=== PATIENT | male | born 1960 | race Two or more races ===

== ENCOUNTER 2020-09-07 13:18 | Emergency (ER) | payer OTHER, SELFPAY ==
[2020-09-07 13:39] VITALS: BP 153/85; PULSE 65; RESP 16; TEMP 36.6; O2SAT 98; BMI 25.2
--- NOTE | 2020-09-07 13:40 | ED.CHESTPAIN ---
HPI - Chest Pain General Chief Complaint: Chest Pain <Praveen Means MD - Last Filed: 09/07/20 15:53> Stated Complaint: CHEST PAIN <Praveen Means MD - Last Filed: 09/07/20 15:53> Time Seen by Provider: 09/07/20 13:40 <Praveen Means MD - Last Filed: 09/07/20 15:53> History of Present Illness HPI narrative: Patient complains of several months of intermittent coming and going chest pain Most recent episode started last night approximately 18 hours ago and has been continuous, the pain is worse with a deep breath, there is some associated anxiety, it is not related to exertion there is no sweating no nausea no vomiting no palpitations no shortness of breath no difficulty breathing no calf pain no leg swelling no fever no chills no cough <BRENDEN Leong - Last Filed: 09/07/20 21:41> Related Data Home Medications: Previous Rx's Medication Instructions Recorded lorazepam [Ativan] 0.5 mg PO TID PRN #14 tab 09/07/20 <Praveen Means MD - Last Filed: 09/07/20 15:53> Allergies/Adverse Reactions: Allergies Allergy/AdvReac Type Severity Reaction Status Date / Time cholecalciferol (vitamin D3) Allergy Unknown RASH Unverified 07/02/20 19:20 [From VITAMIN D3] <Praveen Means MD - Last Filed: 09/07/20 15:53> Review of Systems Review of Systems: Patient has no fever no chills no weakness no numbness no nausea no vomiting no exertional symptoms no sweating no radiation of his pain no palpitations no feeling faint no fainting no abdominal pain no nausea no vomiting no diarrhea, no skin rash <BRENDEN Leong - Last Filed: 09/07/20 21:41> Yes all other systems are reviewed and are negative <BRENDEN Leong Last Filed: 09/07/20 21:41> COUNTS INCLUDE 234 BEDS AT THE [facility] Past Medical History Attestation statement: The following information was validated with the patient. <BRENDEN Leong Last Filed: 09/07/20 21:41> COUNTS INCLUDE 234 BEDS AT THE [facility] Narrative: Patient has no significant medical history, does not smoke does not do drugs does not do alcohol <BRENDEN Leong - Last Filed: 09/07/20 21:41> Medical History: Medical History (Updated 09/07/20 @ 16:04 by BRENDEN Leong) No known health problems <Praveen Means MD - Last Filed: 09/07/20 15:53> Social History Social History: Social History Smoked in Last 30 Days: No Use of substances other than those prescribed or required for medical reasons: No Advance Directives: No Advance Directives Information Provided: No <Praveen Means MD - Last Filed: 09/07/20 15:53> Physical Exam Vital Signs: Vital Signs: Last Vital Signs Temp 98 F 09/07/20 13:39 Pulse 66 09/07/20 14:41 Resp 12 09/07/20 14:41 BP 141/84 H 09/07/20 14:41 Pulse Ox 98 09/07/20 13:39 Body Mass Index 25.2 <Praveen Means MD - Last Filed: 09/07/20 15:53> Vital Signs: Last Vital Signs Temp 98 F 09/07/20 13:39 Pulse 66 09/07/20 14:41 Resp 12 09/07/20 14:41 BP 141/84 H 09/07/20 14:41 Pulse Ox 98 09/07/20 13:39 Body Mass Index 25.2 <BRENDEN Leong - Last Filed: 09/07/20 21:41> Patient is A&O x3, comfortable cheerful cooperative no acute distress The mucous membranes are moist the neck is supple The chest wall is nontender, there is no pain with movement of his arms, the lung sounds are full clear symmetrical and equal no adventitious sounds The heart no murmurs rate and rhythm regular Abdomen soft nontender Extremities no edema no calf tenderness or swelling Neuro no focal deficit Skin no rashes <BRENDEN Leong - Last Filed: 09/07/20 21:41> Course Course Course Narrative: I have discussed the case and management with the SHER <Praveen Means MD - Last Filed: 09/07/20 15:53> MDM - Chest Pain MDM Narrative Medical decision making narrative: Patient with continuous chest pain associated with anxiety for over 18 hours had negative troponin, no evidence of ischemic change on EKG, no shortness of breath Discussion with patient who can follow with his primary care doctor for further evaluation and trial of Ativan to see if his symptoms which she associates with anxiety are relieved with Ativan <BRENDEN Leong - Last Filed: 09/07/20 21:41> Lab Data Attestation: I reviewed the patient's lab results. <BRENDEN Leong - Last Filed: 09/07/20 21:41> Result diagrams: : 09/07/20 14:50 09/07/20 14:50 <Praveen Means MD - Last Filed: 09/07/20 15:53> Labs: Lab Results 09/07/20 09/07/20 09/07/20 Range/Units 14:50 14:50 14:50 WBC 6.0 (4.8-10.8) X10*3/uL RBC 4.36 L (4.60-5.80) X10*6/uL Hgb 14.2 (14.0-18.0) g/dl Hct 42.0 (42-52) % MCV 96.3 (80-98) fL MCH 32.6 (27.0-33.0) pg MCHC 33.8 (31.0-36.0) g/dl RDW 11.8 (11.0-16.0) % Plt Count 208 (160-400) X10*3/uL MPV 10.1 (9.4-12.4) fL Immature Gran % (Auto) 0.2 (0.0-0.4) % Neut % (Auto) 68.5 (45-73) % Lymph % (Auto) 21.3 (20-40) % Lamar % (Auto) 9.6 (2-11) % Eos % (Auto) 0.2 (0-4) % Baso % (Auto) 0.2 (0-2) % Lymph # (Auto) 1.3 (1.2-4.9) X10*3/uL Lamar # (Auto) 0.6 (0.1-1.2) X10*3/uL Eos # (Auto) 0.0 (0.0-0.4) X10*3/uL Baso # (Auto) 0.0 (0.0-0.2) X10*3/uL Abs Immat Gran (auto) 0.01 (0.00-0.03) X10*3/uL Absolute Neuts (auto) 4.1 (2.0-8.3) X10*3/uL Absolute Nucleated RBC 0.000 (0.0-0.012) X10*3/uL Nucleated RBC % (auto) 0.0 (0.0-0.2) /100WBC Hold Blue Top SEE NOTE Sodium 137 (135-145) mmol/L Potassium 5.0 (3.3-5.1) mmol/l Chloride 103 (96-108) mmol/L Carbon Dioxide 27 (22-29) mmol/L Anion Gap 12 (12-20) BUN 11 (9-16) mg/dL Creatinine 0.99 (0.5-1.4) mg/dL Estim Creat Clear Calc 78.6 Estimated GFR > 60 Random Glucose 107 (60-115) mg/dL Calcium 9.5 (8.4-10.2) mg/dL Troponin I High Sens (<3.5-35.0) ng/L 09/07/20 Range/Units 14:50 WBC (4.8-10.8) X10*3/uL RBC (4.60-5.80) X10*6/uL Hgb (14.0-18.0) g/dl Hct (42-52) % MCV (80-98) fL MCH (27.0-33.0) pg MCHC (31.0-36.0) g/dl RDW (11.0-16.0) % Plt Count (160-400) X10*3/uL MPV (9.4-12.4) fL Immature Gran % (Auto) (0.0-0.4) % Neut % (Auto) (45-73) % Lymph % (Auto) (20-40) % Lamar % (Auto) (2-11) % Eos % (Auto) (0-4) % Baso % (Auto) (0-2) % Lymph # (Auto) (1.2-4.9) X10*3/uL Lamar # (Auto) (0.1-1.2) X10*3/uL Eos # (Auto) (0.0-0.4) X10*3/uL Baso # (Auto) (0.0-0.2) X10*3/uL Abs Immat Gran (auto) (0.00-0.03) X10*3/uL Absolute Neuts (auto) (2.0-8.3) X10*3/uL Absolute Nucleated RBC (0.0-0.012) X10*3/uL Nucleated RBC % (auto) (0.0-0.2) /100WBC Hold Blue Top Sodium (135-145) mmol/L Potassium (3.3-5.1) mmol/l Chloride (96-108) mmol/L Carbon Dioxide (22-29) mmol/L Anion Gap (12-20) BUN (9-16) mg/dL Creatinine (0.5-1.4) mg/dL Estim Creat Clear Calc Estimated GFR Random Glucose (60-115) mg/dL Calcium (8.4-10.2) mg/dL Troponin I High Sens < 3.5 (<3.5-35.0) ng/L <Praveen Means MD - Last Filed: 09/07/20 15:53> Lab Results 09/07/20 09/07/20 09/07/20 Range/Units 14:50 14:50 14:50 WBC 6.0 (4.8-10.8) X10*3/uL RBC 4.36 L (4.60-5.80) X10*6/uL Hgb 14.2 (14.0-18.0) g/dl Hct 42.0 (42-52) % MCV 96.3 (80-98) fL MCH 32.6 (27.0-33.0) pg MCHC 33.8 (31.0-36.0) g/dl RDW 11.8 (11.0-16.0) % Plt Count 208 (160-400) X10*3/uL MPV 10.1 (9.4-12.4) fL Immature Gran % (Auto) 0.2 (0.0-0.4) % Neut % (Auto) 68.5 (45-73) % Lymph % (Auto) 21.3 (20-40) % Lamar % (Auto) 9.6 (2-11) % Eos % (Auto) 0.2 (0-4) % Baso % (Auto) 0.2 (0-2) % Lymph # (Auto) 1.3 (1.2-4.9) X10*3/uL Lamar # (Auto) 0.6 (0.1-1.2) X10*3/uL Eos # (Auto) 0.0 (0.0-0.4) X10*3/uL Baso # (Auto) 0.0 (0.0-0.2) X10*3/uL Abs Immat Gran (auto) 0.01 (0.00-0.03) X10*3/uL Absolute Neuts (auto) 4.1 (2.0-8.3) X10*3/uL Absolute Nucleated RBC 0.000 (0.0-0.012) X10*3/uL Nucleated RBC % (auto) 0.0 (0.0-0.2) /100WBC Hold Blue Top SEE NOTE Sodium 137 (135-145) mmol/L Potassium 5.0 (3.3-5.1) mmol/l Chloride 103 (96-108) mmol/L Carbon Dioxide 27 (22-29) mmol/L Anion Gap 12 (12-20) BUN 11 (9-16) mg/dL Creatinine 0.99 (0.5-1.4) mg/dL Estim Creat Clear Calc 78.6 Estimated GFR > 60 Random Glucose 107 (60-115) mg/dL Calcium 9.5 (8.4-10.2) mg/dL Troponin I High Sens (<3.5-35.0) ng/L 09/07/ Range/Units 14:50 WBC (4.8-10.8) X10*3/uL RBC (4.60-5.80) X10*6/uL Hgb (14.0-18.0) g/dl Hct (42-52) % MCV (80-98) fL MCH (27.0-33.0) pg MCHC (31.0-36.0) g/dl RDW (11.0-16.0) % Plt Count (160-400) X10*3/uL MPV (9.4-12.4) fL Immature Gran % (Auto) (0.0-0.4) % Neut % (Auto) (45-73) % Lymph % (Auto) (20-40) % Lamar % (Auto) (2-11) % Eos % (Auto) (0-4) % Baso % (Auto) (0-2) % Lymph # (Auto) (1.2-4.9) X10*3/uL Lamar # (Auto) (0.1-1.2) X10*3/uL Eos # (Auto) (0.0-0.4) X10*3/uL Baso # (Auto) (0.0-0.2) X10*3/uL Abs Immat Gran (auto) (0.00-0.03) X10*3/uL Absolute Neuts (auto) (2.0-8.3) X10*3/uL Absolute Nucleated RBC (0.0-0.012) X10*3/uL Nucleated RBC % (auto) (0.0-0.2) /100WBC Hold Blue Top Sodium (135-145) mmol/L Potassium (3.3-5.1) mmol/l Chloride (96-108) mmol/L Carbon Dioxide (22-29) mmol/L Anion Gap (12-20) BUN (9-16) mg/dL Creatinine (0.5-1.4) mg/dL Estim Creat Clear Calc Estimated GFR Random Glucose (60-115) mg/dL Calcium (8.4-10.2) mg/dL Troponin I High Sens < 3.5 (<3.5-35.0) ng/L <BRENDEN Leong - Last Filed: 09/07/20 21:41> Discharge Plan Discharge Clinical Impression: Chest pain Qualifiers: Chest pain type: unspecified Qualified Code(s): R07.9 - Chest pain, unspecified <Praveen Means MD - Last Filed: 09/07/20 15:53> Patient Disposition: Home, Self-Care <Praveen Means MD - Last Filed: 09/07/20 15:53> Additional Instructions: Our workup today did not show any immediately dangerous condition EKG and tests for heart attack were normal Vital signs were normal The symptoms may be related to anxiety so we are going to let you try and anxiety medicine to see if they help Most important is follow with primary care doctor as all we did today's rule out acute heart attack but for further evaluation of her heart you may need referral to brick maker and other testing Return to ER any time for difficulty breathing, worsening chest pain any worse condition or any concerns <Praveen Means MD - Last Filed: 09/07/20 15:53> Prescriptions: New lorazepam [Ativan] 0.5 mg tablet 0.5 mg PO TID PRN (Reason: anxiety) Qty: 14 RF: 0 <Praveen Means MD - Last Filed: 09/07/20 15:53> Interventions: ED Discharge Assessment Last Done: 09/07/20 16:12 <Praveen Means MD - Last Filed: 09/07/20 15:53> Discharge Date/Time: 09/07/20 16:22 <Praveen Means MD - Last Filed: 09/07/20 15:53>
--- NOTE | 2020-09-07 14:00 | XR_ITS ---
EXAMINATION: XR CHEST CLINICAL INFORMATION: Chest pain COMPARISON: Previous chest x-ray most recent December 2019 TECHNIQUE: Frontal view of the chest was obtained. FINDINGS: The cardiac and mediastinal contours are normal. The lungs are clear. There is no pleural effusion or pneumothorax. There are degenerative changes of the spine. XR/XR chest 1V IMPRESSION: Unremarkable examination.
--- NOTE | 2020-09-07 14:00 | ECG_ITS ---
Test Reason : BACK PAIN Blood Pressure : / mmHG Vent. Rate : 064 BPM Atrial Rate : 064 BPM P-R Int : 158 ms QRS Dur : 086 ms QT Int : 362 ms P-R-T Axes : 060 004 021 degrees QTc Int : 373 ms Normal sinus rhythm Minimal criteria for Left ventricular hypertrophy Borderline criteria for When compared with ECG of 18-DEC-2019 11:59, No significant change was found Referred By: Eloy Prater Electronically Signed By:DIPIKA OCASIO MD
[2020-09-07 14:41] VITALS: BP 141/84; PULSE 66; RESP 12
[2020-09-07 14:57] LABS: Basophils Percent Auto 0.2 % (0-2); Eosinophils Percent Auto 0.2 % (0-4); Hemoglobin 14.2 g/dl (14.0-18.0); Imm Gran Abs Auto 0.01 X10*3/uL (0.00-0.03); Imm Gran Pct Auto 0.2 % (0.0-0.4); Lymphocytes Absolute Auto 1.3 X10*3/uL (1.2-4.9); Lymphocytes Percent Auto 21.3 % (20-40); MANUAL DIFF FLAG NO; Mean Corpuscular HGB Conc 33.8 g/dl (31.0-36.0); Mean Corpuscular Hemoglobin 32.6 pg (27.0-33.0); Mean Corpuscular Volume 96.3 fL (80-98); Mean Platelet Volume 10.1 fL (9.4-12.4); Monocytes Absolute Auto 0.6 X10*3/uL (0.1-1.2); Monocytes Percent Auto 9.6 % (2-11); Neutrophils Absolute Auto 4.1 X10*3/uL (2.0-8.3); Neutrophils Percent Auto 68.5 % (45-73); Platelet Count 208 X10*3/uL (160-400); Red Blood Count 4.36 X10*6/uL (4.60-5.80); Red Cell Distribution Width 11.8 % (11.0-16.0)
[2020-09-07 15:20] LABS: Anion Gap 12 (12-20); Blood Urea Nitrogen 11 mg/dL (9-16); Calcium 9.5 mg/dL (8.4-10.2); Carbon Dioxide 27 mmol/L (22-29); Chloride 103 mmol/L (96-108); Creatinine Clr Calc Pharmacy 78.6; Estimated Glomerular Filt Rate > 60; Glucose Random 107 mg/dL (60-115); Sodium 137 mmol/L (135-145)
[2020-09-07 15:26] LABS: Troponin-I High Sensitivity < 3.5 ng/L (<3.5-35.0)
== END 2020-09-07 16:22 | disposition home or self-care (01) ==
PROVIDERS: Physician Assistant Medical; Emergency Provider Emergency Medicine
DX: R07.9 Chest pain, unspecified (principal); Z79.899 Other long term (current) drug therapy
CPT/HCPCS: 36415; 71045; 80048; 84484; 85025; 93005; 99283; 99284

== ENCOUNTER 2020-12-30 13:48 | Emergency (ER) | payer OTHER, SELFPAY ==
--- NOTE | ~2020-12-30 | CT_ITS ---
EXAMINATION: CT ANGIOGRAM OF THE CHEST WITH AND WITHOUT CONTRAST (CT PULMONARY ANGIOGRAM FOR PE) CLINICAL INFORMATION: Reason for Exam chest and back pain. Dissection COMPARISON: Chest radiograph earlier today and lumbar spine MR 07/03/2018 TECHNIQUE: Multidetector volumetric CT imaging of the chest was obtained after the administration of 70 mL of Omnipaque 350 intravenous contrast without immediate adverse reactions. Axial MIP volume rendering provided. Sagittal and coronal reformatted images were obtained. Images were not evaluated on an independent dedicated 3-D workstation and 3-D images were not. This CT examination was performed using dose optimization techniques as appropriate, variously including the following: *Automated exposure control *Adjustment of mA and/or kV according to patient size (this includes techniques or standardized protocols for targeted exams where dose is matched to indication/reason for exam; i.e. extremities or head) *Use of iterative reconstruction technique DLP: 279 mGy-cm FINDINGS: LUNGS: The lungs are clear with no evidence of inflammation or nodules. MEDIASTINUM: The mediastinum is normal. VASCULAR: The thoracic aorta appears normal. There is no evidence of dissection. Three-vessel branching pattern of the aortic arch is seen with widely patent great vessels. The visualized pulmonary arteries and pulmonary veins are unremarkable. A prominent normal superior intercostal vein is noted. The visualized abdominal aorta appears normal with patent celiac and SMA. 2 renal arteries are noted bilaterally. PLEURA: There is no pleural effusion. No pleural mass or thickening. AXILLA: No lymphadenopathy. UPPER ABDOMEN: A small hiatal hernia is present. OSSEOUS STRUCTURES: A compression fracture of the superior endplate of T12 is again noted. CT/CT angio chest IMPRESSION: Negative study. No evidence of aortic dissection.
--- NOTE | ~2020-12-30 | XR_ITS ---
EXAMINATION: XR CHEST CLINICAL INFORMATION: Chest pain COMPARISON: Chest x-ray 09/07/2020 TECHNIQUE: Frontal portable view of the chest was obtained. 4:36 PM FINDINGS: Lungs are clear. No pulmonary vascular congestion. There is no pleural effusion. The heart size is normal. The cardiac and mediastinal contours are normal. There are multilevel degenerative changes of dorsal spine. XR/XR chest 1V IMPRESSION: Unremarkable examination.
--- NOTE | 2020-12-30 13:52 | ECG_ITS ---
Test Reason : CHEST PAIN Blood Pressure : / mmHG Vent. Rate : 067 BPM Atrial Rate : 067 BPM P-R Int : 164 ms QRS Dur : 080 ms QT Int : 350 ms P-R-T Axes : 064 004 030 degrees QTc Int : 369 ms Normal sinus rhythm Normal ECG When compared with ECG of 07-SEP-2020 13:24, No significant change was found Referred By: Generic ED Physician Electronically Signed By:OLIVERIO ADAMS MD
[2020-12-30 14:12] VITALS: BP 124/73; PULSE 70; RESP 16; TEMP 36.7; O2SAT 97; BMI 28.1
--- NOTE | 2020-12-30 14:29 | PC.NURSE ---
ekg called over head multiple times
[2020-12-30 16:44] VITALS: BP 121/80; PULSE 69; RESP 22; TEMP 36.9; O2SAT 100
--- NOTE | 2020-12-30 17:05 | ED_ITS ---
HPI - Chest Pain General Chief Complaint: Chest Pain Stated Complaint: chest pain Time Seen by Provider: 12/30/20 16:25 Source: patient Mode of arrival: ambulatory Limitations: no limitations History of Present Illness HPI narrative: Patient presents to the ED for chest and back pain that has been occurring since Monday. Patient denies any swelling of lower extremities, calf pain, coughing up blood, fever, chills, any recent trauma to the chest. Patient denies any recent trauma or chest pain on inspiration. Patient states no history of drug use. Patient denies any recent long travel or recent surgery. MD complaint: chest pain Related Data Previous Rx's Medication Instructions Recorded lorazepam [Ativan] 0.5 mg PO TID PRN #14 tab 09/07/20 Allergies Allergy/AdvReac Type Severity Reaction Status Date / Time cholecalciferol (vitamin D3) Allergy Unknown RASH Unverified 07/02/20 19:20 [From VITAMIN D3] Review of Systems Review of Systems: Yes all other systems are reviewed and are negative Constitutional: Constitutional: Reports as per HPI and Reports no additional constitutional complaints Eyes: Eyes: Reports as per HPI and Reports no additional eye complaints ENT: Reports system reviewed and no additional complaints, except as documented and Reports as per HPI Cardiovascular: Cardiovascular: Reports as per HPI, Reports no additional cardiovascular complaints and Reports chest pain Respiratory: Respiratory: Reports as per HPI and Reports no additional respiratory complaints Gastrointestinal: Gastrointestinal: Reports as per HPI and Reports no addit ional gastrointestinal complaints Genitourinary: Genitourinary: Reports no additional male genitourinary complaints and Reports as per HPI Musculoskeletal: Musculoskeletal: Reports no additional musculoskeletal complaints, Reports as per HPI and Reports back pain Neurologic: Reports system reviewed and no additional complaints, except as documented and Reports as per HPI Psychiatric: Psychiatric: Reports no additional psychiatric complaints and Reports as per HPI PMF Past Medical History Medical History (Updated 12/30/20 @ 20:27 by BRENDEN Lema) No known health problems Social History Social History Alcohol intake: never Smoking Status: Never smoker Use of substances other than those prescribed or required for medical reasons: No Advance Directives: No Advance Directives Information Provided: No Physical Exam Vital Signs: Vital Signs: Last Vital Signs Temp 98.4 F 12/30/20 19:03 Pulse 62 12/30/20 19:03 Resp 16 12/30/20 19:03 BP 143/80 H 12/30/20 19:03 Pulse Ox 100 12/30/20 19:03 Body Mass Index 28.1 Const: General: cooperative, healthy appearing, comfortable, no acute distress, well developed, alert and awake; No Physically active Orientation/consciousness: patient oriented x3 HENMT: Head: Yes normal to inspection, Yes No palpable skull fracture present, Yes normocephalic, Yes atraumatic and No abrasion Eyes: General: appearance normal, both eyes and all related structures Neck: Neck: Yes normal visual inspection, Yes full ROM, Yes no lymphadenopathy, Yes no meningeal signs, Yes trachea midline, Yes supple and No tender Chest: Chest palpation & inspection: normal inspection of the chest and normal palpation of entire chest wall Resp: Effort & Inspection: normal respiratory effort and able to speak in complete sentences Auscultation: clear to auscultation bilaterally Cardio: Jugular venous distension: no JVD Heart sounds: S1 normal heart sound present and S2 normal heart sound present GI: Inspection: Yes normal to inspection and No abdominal wall ecchymosis Palpation (GI): Soft to palpation, not firm, nontender, no guarding and not rigid : General: No CVA tenderness and Yes no CVA tenderness Back/Spine/Pelvis: Back: no CVA tenderness, No CVA tenderness and No back te nderness Skin: General skin exam: no rashes or lesions noted and elasticity normal Neuro: General: patient oriented x3, no meningeal signs and CN's II-XI intact bilaterally Cranial nerves: Yes CN's II-XII intact bilaterally Extrem: Other: Lower extremities negative for any swelling, pitting edema, or calf pain General: Yes normal to inspection and Yes full ROM Psych: Appearance: grossly normal, well kempt and not disheveled Course Course Course Narrative: Patient will have labs, EKG. Reevaluation(s) Reevaluation #1: Patient's EKG normal. Troponin and D-dimer negative. Due to patient stating chest and back pain patient had a chest CT to rule out dissection although very unlikely due to patient presently comfortable and blood pressure normal. Wells score 0. D-dimer is negative. Reevaluation #2: Chest CT came back negative for dissection. Patient is safe for discharge per. Patient states no longer having chest pain Time: 20:24 MDM - Chest Pain MDM Narrative Medical decision making narrative: Chest pain Lab Data Result diagrams: 12/30/20 17:08 12/30/20 17:08 Labs: Lab Results 12/30/20 12/30/20 12/30/20 Range/Units 17:08 17:08 17:08 WBC 7.0 (4.8-10.8) X10*3/uL RBC 4.28 L (4.60-5.80) X10*6/uL Hgb 13.7 L (14.0-18.0) g/dl Hct 40.6 L (42-52) % MCV 94.9 (80-98) fL MCH 32.0 (27.0-33.0) pg MCHC 33.7 (31.0-36.0) g/dl RDW 11.9 (11.0-16.0) % Plt Count 187 (160-400) X10*3/uL MPV 10.4 (9.4-12.4) fL Immature Gran % (Auto) 0.1 (0.0-0.4) % Neut % (Auto) 69.9 (45-73) % Lymph % (Auto) 19.0 L (20-40) % Schleicher % (Auto) 9.8 (2-11) % Eos % (Auto) 0.9 (0-4) % Baso % (Auto) 0.3 (0-2) % Lymph # (Auto) 1.3 (1.2-4.9) X10*3/uL Schleicher # (Auto) 0.7 (0.1-1.2) X10*3/uL Eos # (Auto) 0.1 (0.0-0.4) X10*3/uL Baso # (Auto) 0.0 (0.0-0.2) X10*3/uL Abs Immat Gran (auto) 0.01 (0.00-0.03) X10*3/uL Absolute Neuts (auto) 4.9 (2.0-8.3) X10*3/uL Absolute Nucleated RBC 0.000 (0.0-0.012) X10*3/uL Nucleated RBC % (auto) 0.0 (0.0-0.2) /100WBC PT 12.4 (10.8-13.0) SEC INR 1.0 (0.9-1.1) APTT 33.9 (24.1-38.0) SEC D-Dimer < 200 NG/ML Sodium 138 (135-145) mmol/L Potassium 4.4 (3.3-5.1) mmol/L Chloride 104 (96-108) mmol/L Carbon Dioxide 29 (22-29) mmol/L Anion Gap 9 L (12-20) BUN 15 (9-16) mg/dL Creatinine 1.03 (0.5-1.4) mg/dL Estim Creat Clear Calc 82.4 Estimated GFR > 60 Random Glucose 87 (60-115) mg/dL Calcium 9.6 (8.4-10.2) mg/dL Total Bilirubin 0.6 (0.0-1.0) mg/dL AST 21 (5-37) U/L ALT 24 (0-40) U/L Alkaline Phosphatase 77 (39-117) U/L Troponin I High Sens (<3.5-35.0) ng/L B-Natriuretic Peptide (<100) pg/mL Total Protein 7.1 (6.5-8.0) g/dL Albumin 4.3 (3.5-5.0) g/dL 12/30/20 Range/Units 17:08 WBC (4.8-10.8) X10*3/uL RBC (4.60-5.80) X10*6/uL Hgb (14.0-18.0) g/dl Hct (42-52) % MCV (80-98) fL MCH (27.0-33.0) pg MCHC (31.0-36.0) g/dl RDW (11.0-16.0) % Plt Count (160-400) X10*3/uL MPV (9.4-12.4) fL Immature Gran % (Auto) (0.0-0.4) % Neut % (Auto) (45-73) % Lymph % (Auto) (20-40) % Schleicher % (Auto) (2-11) % Eos % (Auto) (0-4) % Baso % (Auto) (0-2) % Lymph # (Auto) (1.2-4.9) X10*3/uL Schleicher # (Auto) (0.1-1.2) X10*3/uL Eos # (Auto) (0.0-0.4) X10*3/uL Baso # (Auto) (0.0-0.2) X10*3/uL Abs Immat Gran (auto) (0.00-0.03) X10*3/uL Absolute Neuts (auto) (2.0-8.3) X10*3/uL Absolute Nucleated RBC (0.0-0.012) X10*3/uL Nucleated RBC % (auto) (0.0-0.2) /100WBC PT (10.8-13.0) SEC INR (0.9-1.1) APTT (24.1-38.0) SEC D-Dimer NG/ML Sodium (135-145) mmol/L Potassium (3.3-5.1) mmol/L Chloride (96-108) mmol/L Carbon Dioxide (22-29) mmol/L Anion Gap (12-20) BUN (9-16) mg/dL Creatinine (0.5-1.4) mg/dL Estim Creat Clear Calc Estimated GFR Random Glucose (60-115) mg/dL Calcium (8.4-10.2) mg/dL Total Bilirubin (0.0-1.0) mg/dL AST (5-37) U/L ALT (0-40) U/L Alkaline Phosphatase (39-117) U/L Troponin I High Sens < 3.5 (<3.5-35.0) ng/L B-Natriuretic Peptide 34 (<100) pg/mL Total Protein (6.5-8.0) g/dL Albumin (3.5-5.0) g/dL ECG Data ECG #1: Interpretation: Normal sinus rhythm. Normal EKG. Ventricular rate 67. IA interval 164. QRS 80. Negative STEMI Discharge Plan Discharge Clinical Impression: Atypical chest pain Patient Disposition: Home, Self-Care Instructions: Chest Pain (ED) Additional Instructions: Return to the ED immediately for worsening chest pain, shortness of breath, swelling of lower extremities, calf pain, coughing up, fever, chills, or any other concerning symptoms. EKG was normal. Troponin is negative. Chest x-ray is normal. Chest CT negative for dissection. D-dimer negative follow-up with PCP. Prescriptions: No Action lorazepam [Ativan] 0.5 mg tablet 0.5 mg PO TID PRN (Reason: anxiety) Qty: 14 RF: 0 Print Language: Kenyan
[2020-12-30] MEDS: 0.9 % Sodium Chloride 1,000 ML 999 ML IV (17:09)
[2020-12-30 17:12] LABS: MANUAL DIFF FLAG NO
[2020-12-30 17:23] LABS: Basophils Percent Auto 0.3 % (0-2); Eosinophils Absolute Auto 0.1 X10*3/uL (0.0-0.4); Eosinophils Percent Auto 0.9 % (0-4); Hematocrit 40.6 % (42-52); Hemoglobin 13.7 g/dl (14.0-18.0); Imm Gran Abs Auto 0.01 X10*3/uL (0.00-0.03); Imm Gran Pct Auto 0.1 % (0.0-0.4); Lymphocytes Absolute Auto 1.3 X10*3/uL (1.2-4.9); Mean Corpuscular HGB Conc 33.7 g/dl (31.0-36.0); Mean Corpuscular Volume 94.9 fL (80-98); Mean Platelet Volume 10.4 fL (9.4-12.4); Monocytes Absolute Auto 0.7 X10*3/uL (0.1-1.2); Monocytes Percent Auto 9.8 % (2-11); Neutrophils Absolute Auto 4.9 X10*3/uL (2.0-8.3); Neutrophils Percent Auto 69.9 % (45-73); Platelet Count 187 X10*3/uL (160-400); Red Blood Count 4.28 X10*6/uL (4.60-5.80); Red Cell Distribution Width 11.9 % (11.0-16.0)
[2020-12-30 17:40] LABS: Prothrombin Time 12.4 SEC (10.8-13.0)
[2020-12-30 17:43] LABS: Partial Thromboplastin Time 33.9 SEC (24.1-38.0)
[2020-12-30 17:44] LABS: D Dimer < 200 NG/ML
[2020-12-30 17:58] LABS: B Type Natriuretic Peptide 34 pg/mL (<100); Troponin-I High Sensitivity < 3.5 ng/L (<3.5-35.0)
[2020-12-30 18:13] LABS: Alanine Aminotransferase 24 U/L (0-40); Albumin Level 4.3 g/dL (3.5-5.0); Alkaline Phosphatase 77 U/L (39-117); Anion Gap 9 (12-20); Aspartate Amino Transferase 21 U/L (5-37); Bilirubin Total 0.6 mg/dL (0.0-1.0); Blood Urea Nitrogen 15 mg/dL (9-16); Calcium 9.6 mg/dL (8.4-10.2); Carbon Dioxide 29 mmol/L (22-29); Chloride 104 mmol/L (96-108); Creatinine Clr Calc Pharmacy 82.4; Estimated Glomerular Filt Rate > 60; Glucose Random 87 mg/dL (60-115); Potassium 4.4 mmol/L (3.3-5.1); Sodium 138 mmol/L (135-145); Total Protein 7.1 g/dL (6.5-8.0)
[2020-12-30 19:03] VITALS: BP 143/80; PULSE 62; RESP 16; TEMP 36.9; O2SAT 100
[2020-12-30] MEDS: Famotidine/PF 20 MG/2 ML VIAL IVPUSH (19:37)
== END 2020-12-30 20:52 | disposition home or self-care (01) ==
PROVIDERS: Physician Assistant; Emergency Provider Emergency Medicine
DX: R07.89 Other chest pain (principal)
CPT/HCPCS: 36415; 71045; 71275; 80053; 83880; 84484; 85025; 85379; 85610; 85730; 93005; 96361; 96374; 99284; Q9967

== ENCOUNTER → 2021-03-01 11:14 | Outpatient (REF) | payer OTHER, SELFPAY ==
--- NOTE | 2021-03-01 11:18 | CA_ITS ---
Acquisition Time: 2021-03-01 11:21:40 Total Exercise Time: 00:08:43 Test Indications: CP, SOB Medications: SEE CHART Protocol: THERON Max HR: 144 BPM 88% of Pred: 162 BPM Max BP: 146/076 mmHG Max Work Load: 10.1 METS Exercise stress ECHO using Theron protocol, total of 8 min 43 sec. Pt tolerated well, denies any anginal sx. EKG with no arrhythmias, no ischemic changes seen during exercise or in recovery. ECHO images taken at rest and then immediately aftter peak exercise HR achieved. Definity contrast used. Normotensive response to exercise. Test reviewed with Dr. Benson. STRESS ECHO : Technique : Images were obtained at rest and immediately post exercise within 1 minute 15 seconds. Definity contrast was used to enhance endocardial definition Images were obtained in multiple views and compared side to side Findings : At rest images are of good quality. LV systolic function is normal with normal wall motion. Post exercise images are of borderline quality due to off axis views. There is good overall augmentation of LV systolic function. There are no regional wall motion abnormalities. Conclusion : Stress echo is negative for ischemia Referred By: Shmuel Elizondo Overread By: OLIVERIO BENSON MD
== END ==
LOC: HO.CARD 11:14
PROVIDERS: Visit Provider Internal Medicine Cardiovascular Disease
DX: R07.9 Chest pain, unspecified (principal)
CPT/HCPCS: 93350; Q9957

== ENCOUNTER 2021-08-25 13:20 | Emergency (ER) | payer OTHER, SELFPAY ==
--- NOTE | ~2021-08-25 | XR_ITS ---
EXAMINATION: XR CHEST CLINICAL INFORMATION: Shortness of breath COMPARISON: 12/30/2020 TECHNIQUE: Frontal view of the chest was obtained. FINDINGS: Lungs are well expanded. No acute findings compared to 12/30/2020. There is an old linear opacity of focal scar or atelectasis in the inferior lingula. No consolidation, edema or pleural effusion. Cardiac silhouette has normal size and contour. The visualized bones are intact. XR/XR chest 1V IMPRESSION: No acute pulmonary disease compared to 12/30/2020.
[2021-08-25 13:27] VITALS: BP 125/69; PULSE 77; RESP 16; TEMP 37.2; O2SAT 97; BMI 27.0
--- NOTE | 2021-08-25 14:13 | ED_ITS ---
HPI - SOB/Dyspnea General Chief Complaint: Dyspnea Stated Complaint: sob, cp Time Seen by Provider: 08/25/21 14:13 Source: patient Mode of arrival: ambulatory Limitations: no limitations History of Present Illness HPI Narrative: Increased shortness of breath and chest pain, patient states he had similar symptoms last year. patient was seen in August and December with similar symptoms and discharged home. Patient had a prior admission and stress test that was normal. Patient with 3 weeks of cough patient states tested negative for COVID. Patient is a non smoker MD elicited complaint: shortness of breath, cough and chest pain Onset (ago): week(s) Timing: intermittent Severity: mild Associated symptoms: chest pain and cough Related Data Previous Rx's Medication Instructions Recorded lorazepam 0.5 mg tablet (Ativan) 0.5 mg PO TID PRN #14 tab 09/07/20 Allergies Allergy/AdvReac Type Severity Reaction Status Date / Time cholecalciferol (vitamin D3) Allergy Unknown RASH Unverified 07/02/20 19:20 [From VITAMIN D3] Review of Systems Constitutional: Constitutional: Reports no additional constitutional complaints Eyes: Eyes: Reports no additional eye complaints ENT: Denies dizziness Cardiovascular: Cardiovascular: Reports no additional cardiovascular complaints Respiratory: Respiratory: Reports as per HPI Gastrointestinal: Gastrointestinal: Reports no additional gastrointestinal complaints Musculoskeletal: Musculoskeletal: Reports no additional musculoskeletal complaints Integumentary/Breasts: Skin/Breast: Denies rash Neurologic: Reports system reviewed and no additional complaints, except as documented, Denies dizziness and Denies Sensory deficit (Neuro) Psychiatric: Psychiatric: Denies anxiety [facility] Past Medical History Medical History No known health problems Social History Social History Alcohol intake: never Patient Tobacco Use Status: Never used Tobacco Use of substances other than those prescribed or required for medical reasons: No Advance Directives: No Advance Directives Information Provided: Yes Physical Exam Vital Signs: Vital Signs: Last Vital Signs Temp 98.0 F 08/25/21 14:36 Pulse 76 08/25/21 14:36 Resp 18 08/25/21 14:36 BP 126/81 08/25/21 14:36 Pulse Ox 99 08/25/21 14:36 Body Mass Index 27.0 Neuro: Sensory Exam: No Sensory deficit (Neuro) Course Reevaluation(s) Reevaluation #1: patient with multiple visits for the same, EKG and labs normal will refer patient to PMD Time: 16:09 MDM - SOB/Dyspnea Lab Data Result diagrams: 08/25/21 14:50 08/25/21 14:50 Labs: Lab Results 08/25/21 08/25/21 08/25/21 Range/Units 14:50 14:50 14:50 WBC 4.7 L (4.8-10.8) X10*3/uL RBC 4.09 L (4.60-5.80) X10*6/uL Hgb 13.1 L (14.0-18.0) g/dl Hct 39.2 L (42.0-52.0) % MCV 95.8 (80.0-98.0) fL MCH 32.0 (27.0-33.0) pg MCHC 33.4 (31.0-36.0) g/dl RDW 11.5 (11.0-16.0) % Plt Count 290 (160-400) X10*3/uL MPV 9.8 (9.4-12.4) fL Immature Gran % (Auto) 0.2 (0.0-0.4) % Neut % (Auto) 60.2 (45-73) % Lymph % (Auto) 28.6 (20-40) % [place] % (Auto) 9.9 (2-11) % Eos % (Auto) 0.9 (0-4) % Baso % (Auto) 0.2 (0-2) % Lymph # (Auto) 1.3 (1.2-4.9) X10*3/uL [place] # (Auto) 0.5 (0.1-1.2) X10*3/uL Eos # (Auto) 0.0 (0.0-0.4) X10*3/uL Baso # (Auto) 0.0 (0.0-0.2) X10*3/uL Abs Immat Gran (auto) 0.01 (0.00-0.03) X10*3/uL Absolute Neuts (auto) 2.8 (2.0-8.3) x10*3/uL Absolute Nucleated RBC 0.000 (0.0-0.012) X10*3/uL Nucleated RBC % (auto) 0.0 (0.0-0.2) /100WBC Sodium 141 (135-145) mmol/L Potassium 4.2 (3.3-5.1) mmol/L Chloride 106 (96-108) mmol/L Carbon Dioxide 30 H (22-29) mmol/L Anion Gap 9 L (12-20) BUN 11 (9-16) mg/dL Creatinine 0.83 (0.5-1.4) mg/dL Estim Creat Clear Calc 92.7 Estimated GFR > 60 Random Glucose 80 (60-115) mg/dL Calcium 9.5 (8.4-10.2) mg/dL Troponin I High Sens < 3.5 (<3.5-35.0) ng/L ECG Data Attestation: I personally reviewed and interpreted this ECG as follows: Interpretation: normal sinus rate of 65, no st or twave changes Discharge Plan Discharge Clinical Impression: Atypical chest pain Patient Disposition: Home, Self-Care Instructions: Noncardiac Chest Pain (ED) Additional Instructions: return for worsening shortness of breath Prescriptions: No Action lorazepam [Ativan] 0.5 mg tablet 0.5 mg PO TID PRN (Reason: anxiety) Qty: 14 RF: 0 Referrals: Physician,Unknown J [Primary Care Provider] - 1 week
--- NOTE | 2021-08-25 14:31 | ECG_ITS ---
Test Reason : chest pain Blood Pressure : / mmHG Vent. Rate : 067 BPM Atrial Rate : 067 BPM P-R Int : 176 ms QRS Dur : 086 ms QT Int : 354 ms P-R-T Axes : 074 003 023 degrees QTc Int : 374 ms Normal sinus rhythm Possible Early repolarization Normal ECG When compared with ECG of 30-DEC-2020 13:56, No significant change was found Referred By: Praveen Means Electronically Signed By:DIPIKA OCASIO MD
[2021-08-25 14:36] VITALS: BP 126/81; PULSE 76; RESP 18; TEMP 36.7; O2SAT 99
[2021-08-25 14:54] LABS: MANUAL DIFF FLAG NO
[2021-08-25 15:01] LABS: Basophils Percent Auto 0.2 % (0-2); Eosinophils Percent Auto 0.9 % (0-4); Hematocrit 39.2 % (42.0-52.0); Hemoglobin 13.1 g/dl (14.0-18.0); Imm Gran Abs Auto 0.01 X10*3/uL (0.00-0.03); Imm Gran Pct Auto 0.2 % (0.0-0.4); Lymphocytes Absolute Auto 1.3 X10*3/uL (1.2-4.9); Lymphocytes Percent Auto 28.6 % (20-40); Mean Corpuscular HGB Conc 33.4 g/dl (31.0-36.0); Mean Corpuscular Volume 95.8 fL (80.0-98.0); Mean Platelet Volume 9.8 fL (9.4-12.4); Monocytes Absolute Auto 0.5 X10*3/uL (0.1-1.2); Monocytes Percent Auto 9.9 % (2-11); Neutrophils Absolute Auto 2.8 x10*3/uL (2.0-8.3); Neutrophils Percent Auto 60.2 % (45-73); Platelet Count 290 X10*3/uL (160-400); Red Blood Count 4.09 X10*6/uL (4.60-5.80); Red Cell Distribution Width 11.5 % (11.0-16.0); White Blood Count 4.7 X10*3/uL (4.8-10.8)
[2021-08-25 15:12] LABS: Anion Gap 9 (12-20); Blood Urea Nitrogen 11 mg/dL (9-16); Calcium 9.5 mg/dL (8.4-10.2); Carbon Dioxide 30 mmol/L (22-29); Chloride 106 mmol/L (96-108); Creatinine Clr Calc Pharmacy 92.7; Estimated Glomerular Filt Rate > 60; Glucose Random 80 mg/dL (60-115); Potassium 4.2 mmol/L (3.3-5.1); Sodium 141 mmol/L (135-145)
[2021-08-25 15:15] LABS: Troponin-I High Sensitivity < 3.5 ng/L (<3.5-35.0)
[2021-08-25 16:00] VITALS: BP 142/94; PULSE 68; RESP 13; TEMP 37.1; O2SAT 100
[2021-08-25] MEDS: Ibuprofen 600 MG TABLET PO (16:41)
== END 2021-08-25 16:42 | disposition home or self-care (01) ==
PROVIDERS: Emergency Provider Emergency Medicine
DX: R07.89 Other chest pain (principal)
CPT/HCPCS: 36415; 71045; 80048; 84484; 85025; 93005; 99283; 99285

== ENCOUNTER 2021-11-10 10:40 | Emergency (ER) | payer OTHER, SELFPAY ==
--- NOTE | ~2021-11-10 | CT_ITS ---
EXAMINATION: CT ABDOMEN AND PELVIS WITH CONTRAST CLINICAL INFORMATION: Right mid abdominal discomfort with bright red blood per rectum. COMPARISON: None TECHNIQUE: Multidetector volumetric images were obtained from the superior aspect of the liver through the pubic symphysis following administration 85 mL of Omnipaque 350 intravenous contrast. Sagittal and coronal reformatted images were obtained on the technologist's workstation. Oral contrast: No This CT examination was performed using dose optimization techniques as appropriate, variously including the following: *Automated exposure control *Adjustment of mA and/or kV according to patient size (this includes techniques or standardized protocols for targeted exams where dose is matched to indication/reason for exam; i.e. extremities or head) *Use of iterative reconstruction technique DLP: 516 mGy-cm FINDINGS: LUNG BASES: The visualized lung bases are unremarkable. No pleural or pericardial effusion. LIVER, GALLBLADDER, AND BILIARY TREE: The liver is normal in size, shape, and attenuation. No focal hepatic lesion or biliary ductal dilatation is present. There is a calcified granuloma seen within segment 6.. The gallbladder is unremarkable with no evidence of radiopaque gallstones, gallbladder wall thickening, or obvious pericholecystic inflammatory changes. PANCREAS: Unremarkable. SPLEEN: Unremarkable. ADRENAL GLANDS: Unremarkable. KIDNEYS AND URETERS: The kidneys are normal in size, shape, and attenuation. No hydronephrosis or hydroureter seen. No perinephric stranding. There is a 3 mm nonobstructing calculus within the interpolar region of the right kidney. There is a subcentimeter cyst seen within the lower pole of the left kidney. BLADDER: Unremarkable. GASTROINTESTINAL TRACT: No dilated loops of large or small bowel. No free air or free fluid. No is a question of some mild pericolonic stranding at the splenic flexure however this may be related to breathing motion artifact. No definite bowel wall thickening or other findings to suggest acute colitis. No pericolonic fluid collections are identified. The appendix appears unremarkable. ABDOMINAL WALL: No significant hernia is appreciated. LYMPH NODES: No lymphadenopathy appreciated. VASCULAR: Portal vein patent. Hepatic veins are patent. No abdominal aortic aneurysm. Visceral vessels are patent. PELVIC VISCERA: Unremarkable. OSSEOUS STRUCTURES: No suspicious destructive bony lesions identified. There is a superior endplate compression fracture of T12 approximately 40% loss of height. CT/CT abdomen pelvis w con IMPRESSION: Question small amount of fat stranding versus motion artifact about the splenic flexure:. No evidence of obstructive uropathy. No evidence of ileus or obstruction within large or small bowel. Fleischner guidelines were followed.
[2021-11-10 11:13] VITALS: BP 146/78; PULSE 78; RESP 18; TEMP 36.9; O2SAT 99; BMI 27.3
[2021-11-10 13:08] VITALS: BP 153/84; PULSE 66; RESP 18; TEMP 36.7; O2SAT 96
--- NOTE | 2021-11-10 13:20 | PC.NURSE ---
pt a&ox3, pt c/o rectal bleeding with rt side back pain, denies sob/difficulty breathing, vss, awaiting provider, will continue to monitor.
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
[2021-11-10 13:53] LABS: MANUAL DIFF FLAG NO
[2021-11-10 13:55] LABS: Basophils Percent Auto 0.2 % (0-2); Eosinophils Absolute Auto 0.1 X10*3/uL (0.0-0.4); Hematocrit 41.7 % (42.0-52.0); Hemoglobin 13.7 g/dl (14.0-18.0); Imm Gran Abs Auto 0.01 X10*3/uL (0.00-0.03); Imm Gran Pct Auto 0.2 % (0.0-0.4); Lymphocytes Absolute Auto 1.4 X10*3/uL (1.2-4.9); Lymphocytes Percent Auto 27.1 % (20-40); Mean Corpuscular HGB Conc 32.9 g/dl (31.0-36.0); Mean Corpuscular Hemoglobin 32.2 pg (27.0-33.0); Mean Corpuscular Volume 97.9 fL (80.0-98.0); Mean Platelet Volume 10.1 fL (9.4-12.4); Monocytes Absolute Auto 0.6 X10*3/uL (0.1-1.2); Monocytes Percent Auto 11.9 % (2-11); Neutrophils Percent Auto 59.6 % (45-73); Platelet Count 208 X10*3/uL (160-400); Red Blood Count 4.26 X10*6/uL (4.60-5.80); Red Cell Distribution Width 12.6 % (11.0-16.0); White Blood Count 5.1 X10*3/uL (4.8-10.8)
--- NOTE | 2021-11-10 13:55 | PC.NURSE ---
IV inserted, labs drawn, vss, assisted provider with rectal exam.
[2021-11-10 13:56] VITALS: BP 149/84; PULSE 66; RESP 20; TEMP 36.8; O2SAT 96
[2021-11-10 13:58] LABS: OBS Int Ctl Valid YES; OBS1 POSITIVE (NEGATIVE)
--- NOTE | 2021-11-10 14:15 | PC.NURSE ---
urine collected and sent to lab.
[2021-11-10 14:16] LABS: Alanine Aminotransferase 20 U/L (0-40); Albumin Level 4.2 g/dL (3.5-5.0); Alkaline Phosphatase 65 U/L (39-117); Anion Gap 10 (12-20); Aspartate Amino Transferase 18 U/L (5-37); Bilirubin Total 0.5 mg/dL (0.0-1.0); Blood Urea Nitrogen 13 mg/dL (9-16); Calcium 9.7 mg/dL (8.4-10.2); Carbon Dioxide 29 mmol/L (22-29); Chloride 104 mmol/L (96-108); Creatinine Clr Calc Pharmacy 77.7; Estimated Glomerular Filt Rate > 60; Glucose Random 84 mg/dL (60-115); Potassium 4.5 mmol/L (3.3-5.1); Sodium 138 mmol/L (135-145); Total Protein 7.2 g/dL (6.5-8.0)
[2021-11-10 14:23] LABS: Appearance Urine CLOUDY; Color Urine YELLOW; Glucose Urine UA NEG (NEG); Leukocyte Esterase Urine NEG (NEG); Nitrite Urine NEG (NEG); PH 6.5 (5.0-8.0); Specific Gravity - Urine 1.015 (1.005-1.025); Urine Blood NEG (NEG); Urine Ketones NEG (NEG); Urine Protein NEG (NEG-TRACE)
[2021-11-10] MEDS: iohexoL 350 MG/ML 100 ML INFUS..BTL IV (14:36)
[2021-11-10 16:23] VITALS: BP 136/81; PULSE 62; RESP 16; TEMP 36.7; O2SAT 97
== END 2021-11-10 16:26 | disposition home or self-care (01) ==
PROVIDERS: Emergency Provider Emergency Medicine
DX: K92.2 Gastrointestinal hemorrhage, unspecified (principal); R10.9 Unspecified abdominal pain
CPT/HCPCS: 36415; 74177; 80053; 81003; 82272; 85025; 99284; Q9967

== ENCOUNTER → 2022-06-14 12:47 | Outpatient (REF) | payer OTHER, SELFPAY ==
--- NOTE | 2022-06-14 12:52 | CA_ITS ---
Transthoracic Echocardiogram Patient (Last, First, Middle): Justen Wong, Gender: Male Date of : 1960 Age: 61 Procedure Date: 06/14/2022 Procedure Type: Transthoracic Echocardiogram Location: OP Height: 172.72 cm Weight: 80.74 kg BSA: 1.95 m2 Heart Rate: bpm BP: 125 / 80 mmHg Practice Physician: VERONICA Madden MD: Nhi Hinton DO Oil Rigger: Octavio Benson MD Symptoms: R06.00 DYSPNEA Study Quality: Good ECG Rhythm: Sinus Conclusions: - 1. Normal LV systolic function with grade 1 diastolic dysfunction 2. Normal cardiac valvular Doppler 3. Mildly dilated ascending aorta at 3.9 cm 4. No gross pericardial effusion Findings Left Ventricle Normal left ventricular size, thickness, and systolic function. The visually estimated ejection fraction is between 60-65%. Spectral Doppler is indicative of an impaired relaxation filling pattern. E/E prime ratio is <8, consistent with normal filling pressures. Evidence suggests grade I (mild) diastolic dysfunction. Peak GLS is -19.4%, within normal limits Right Ventricle Mildly increased right ventricular cavity size. There is normal right ventricular systolic function. Atria The left atrium is normal in size. Interatrial shunt cannot be excluded. The right atrium is likely dilated. Aortic Valve Normal aortic valve structure and function. There is no aortic valve stenosis. There is no aortic valve regurgitation. Mitral Valve Normal mitral valve structure and function. There is trace mitral valve regurgitation. There is no mitral valve stenosis. Pulmonic Valve The pulmonic valve was not well visualized. Tricuspid Valve Likely normal tricuspid valve structure and function. Tricuspid regurgitation envelope is inadequate for calculation of right ventricular systolic pressure. Normal right atrial pressure. Great Vessels The pulmonary artery was not well visualized. There is mild dilatation of the ascending aorta measuring 3.90 cm. Venous The inferior vena cava is normal in size and collapses greater than 50% with inspiration. Pericardium/Pleural There is no evidence of pericardial effusion. Prior Study Comparison No prior study available for comparison. Measurements 2D Linear Measurements IVSd: 0.98 0.6-0.9/0.6-1.0 cm LVIDd: 4.40 3.9-5.3/4.2-5.9 cm LVIDd Index: 2.26 2.4-3.2/2.2-3.1 cm/m2 LVIDs: 3.04 2.0-3.6 cm LVPWd: 0.96 0.7-1.1 cm Ao Root: 3.80 2.1-3.5 cm LA Diam: 3.70 2.7-3.8/3.0-4.0 cm LAIDs Index: 1.90 1.5-2.3 cm/m2 LV Mass: 176.69 67-162/88-224 g LV Mass Index: 90.61 43-95/49-115 g/m2 LVOT Diam: 2.10 3.0+(-)1.3 cm 2D Systolic Function EF 4C: 56.40 >55% EF 2C: 65.50 >55% EF BiP: 61.10 >55% Mitral Valve MV Pk E: 0.60 MV PK A: 0.66 MV Decel Time: 222.00 E/A: 0.90 E'Lateral: 8.38 E'Medial: 6.64 E/E' Med: 9.00 E/E' Lat: 7.20 PHT: 65.00 MVA PHT: 3.38 Decel [place]: 2.70 Aortic Valve AoV Pk Dud[place]: 1.22 AoV Mn Dudley: 0.83 AoV VTI: 0.25 AoV Pk Grad: 6.00 Aov Mn Grad: 3.00 NIGEL Cont.VTI: 2.55 LVOT LVOT Pk [place]ley: 0.91 LVOT Mn [place]ley: 0.63 LVOT VTI: 0.19 LVOT Pk Grad: 3.00 LVOT Mn Grad: 2.00 LVOT Diam: 2.10 LVOT Area: 3.46 Diastolic Function MV Pk E: 0.60 MV Pk A: 0.66 E/A: 0.90 E'Medial: 6.64 E/E' Med: 9.00 E' Laterial: 8.38 E/E' Lat: 7.20 Right Ventricle TAPSE (mm): 24.00 TVS' Dud[place]: 13.00 Tricuspid Valve RA Press: 3.00 Great Vessels Aorta Ao Root-2D: 3.80 2.0-3.7 cm Sinus of Valsalva: 3.80 2.0-3.5 cm Ao Asc: 3.90 2.1-3.4 cm Pulmonary Veins Pulm Vein S/D 1.00 Pulmonary Valve PV Pk Dud[place]: 0.94 Peak PV Grad: 4.00 Updated in Other Vendor System with Status of Final Octavio Benson MD electronically signed on 06/14/2022 4:30:06 PM with status of Final
== END ==
LOC: HO.CARD 12:47
PROVIDERS: PCP Family Medicine; Visit Provider Family Medicine
DX: R06.00 Dyspnea, unspecified (principal)
CPT/HCPCS: 93306; 93356

== ENCOUNTER 2022-12-22 13:23 | Emergency (ER) | payer OTHER, SELFPAY ==
--- NOTE | ~2022-12-22 | XR_ITS ---
EXAMINATION: XR CHEST CLINICAL INFORMATION: Chest pain, shortness of breath and cough COMPARISON: Chest radiograph 08/25/2021, CT chest 12/30/2020 TECHNIQUE: 2 views of the chest were obtained. FINDINGS: No significant abnormality is noted involving the heart, lungs, mediastinum or soft tissues. Again seen is a compression fracture of the superior endplate of T12, unchanged from 2020. XR/XR chest 2V IMPRESSION: No acute intrathoracic disease.
[2022-12-22 13:24] VITALS: BP 142/90; PULSE 80; RESP 16; TEMP 36.3; O2SAT 99; BMI 26.1
--- NOTE | 2022-12-22 13:26 | ED_ITS ---
HPI - General Adult General Chief complaint: Chest Pain Stated complaint: Heart issues Related Data Previous Rx's Medication Instructions Recorded lorazepam 0.5 mg tablet (Ativan) 0.5 mg PO TID PRN anxiety #14 tabs 09/07/20 Allergies Allergy/AdvReac Type Severity Reaction Status Date / Time cholecalciferol (vitamin D3) Allergy Unknown RASH Unverified 07/02/20 19:20 [From VITAMIN D3] [facility] Past Medical History Medical History No known health problems Social History Social History Alcohol intake: never Patient Tobacco Use Status: Never used Tobacco Advance Directives: No Advance Directives Information Provided: Yes Physical Exam ED Vital Signs: BMI result Body Mass Index 26.1 Course Course Course Narrative: This is an RME: Additional HPI, ROS, PE not included below will be deferred to primary provider. Patient is a 62-year-old male who presents to the emergency department for evaluation. He is reporting chest pain, onset 2 weeks ago, constant in nature, felt to left anterior chest, denies exacerbating or alleviating factors. Bilateral arms and legs feel numb intermittently. Shortness of breath, worse with exertion. Also with non-productive cough. Reports a history of similar pain 1-2 years ago. Denies known sick contacts. Plan: labs, EKG, CXR, viral testing Medical Decision Making Lab Data 12/22/22 13:40 12/22/22 13:40 Labs: Lab Results 12/22/22 12/22/22 12/22/22 Range/Units 13:40 13:40 13:40 WBC 6.2 (4.8-10.8) X10*3/uL RBC 4.50 L (4.60-5.80) X10*6/uL Hgb 14.2 (14.0-18.0) g/dl Hct 42.5 (42.0-52.0) % MCV 94.4 (80.0-98.0) fL MCH 31.6 (27.0-33.0) pg MCHC 33.4 (31.0-36.0) g/dl RDW 12.4 (11.0-16.0) % Plt Count 210 (160-400) X10*3/uL MPV 10.1 (9.4-12.4) fL Immature Gran % (Auto) 0.3 (0.0-0.4) % Neut % (Auto) 69.3 (45-73) % Lymph % (Auto) 19.4 L (20-40) % [place] % (Auto) 10.0 (2-11) % Eos % (Auto) 0.8 (0-4) % Baso % (Auto) 0.2 (0-2) % Lymph # (Auto) 1.2 (1.2-4.9) X10*3/uL [place] # (Auto) 0.6 (0.1-1.2) X10*3/uL Eos # (Auto) 0.1 (0.0-0.4) X10*3/uL Baso # (Auto) 0.0 (0.0-0.2) X10*3/uL Abs Immat Gran (auto) 0.02 (0.00-0.03) X10*3/uL Absolute Neuts (auto) 4.3 (2.0-8.3) x10*3/uL Absolute Nucleated RBC 0.000 (0.0-0.012) X10*3/uL Nucleated RBC % (auto) 0.0 (0.0-0.2) /100WBC PT 11.3 (10.0-13.1) SEC INR 1.0 (0.9-1.1) Sodium 139 (135-145) mmol/L Potassium 4.7 (3.3-5.1) mmol/L Chloride 105 (96-108) mmol/L Carbon Dioxide 29 (22-29) mmol/L Anion Gap 10 L (12-20) BUN 10 (9-16) mg/dL Creatinine 0.85 (0.5-1.4) mg/dL Estim Creat Clear Calc 89.4 Estimated GFR > 60 Random Glucose 92 (60-115) mg/dL Calcium 9.5 (8.4-10.2) mg/dL Total Bilirubin 0.6 (0.0-1.0) mg/dL AST 17 (5-37) U/L ALT 19 (0-40) U/L Alkaline Phosphatase 74 (39-117) U/L Troponin I High Sens (<3.5-35.0) ng/L B-Natriuretic Peptide (<100) pg/mL Total Protein 7.2 (6.5-8.0) g/dL Albumin 4.2 (3.5-5.0) g/dL Lipase 33 (8-78) U/L COVID-19 (MARCIE) (Negative) COVID-19 Clin Com Influenza Type A (VICKIE) (Negative) Influenza Type B (VICKIE) (Negative) Influenza A & B Note 12/22/22 12/22/22 12/22/22 Range/Units 13:40 13:40 13:40 WBC (4.8-10.8) X10*3/uL RBC (4.60-5.80) X10*6/uL Hgb (14.0-18.0) g/dl Hct (42.0-52.0) % MCV (80.0-98.0) fL MCH (27.0-33.0) pg MCHC (31.0-36.0) g/dl RDW (11.0-16.0) % Plt Count (160-400) X10*3/uL MPV (9.4-12.4) fL Immature Gran % (Auto) (0.0-0.4) % Neut % (Auto) (45-73) % Lymph % (Auto) (20-40) % [place] % (Auto) (2-11) % Eos % (Auto) (0-4) % Baso % (Auto) (0-2) % Lymph # (Auto) (1.2-4.9) X10*3/uL [place] # (Auto) (0.1-1.2) X10*3/uL Eos # (Auto) (0.0-0.4) X10*3/uL Baso # (Auto) (0.0-0.2) X10*3/uL Abs Immat Gran (auto) (0.00-0.03) X10*3/uL Absolute Neuts (auto) (2.0-8.3) x10*3/uL Absolute Nucleated RBC (0.0-0.012) X10*3/uL Nucleated RBC % (auto) (0.0-0.2) /100WBC PT (10.0-13.1) SEC INR (0.9-1.1) Sodium (135-145) mmol/L Potassium (3.3-5.1) mmol/L Chloride (96-108) mmol/L Carbon Dioxide (22-29) mmol/L Anion Gap (12-20) BUN (9-16) mg/dL Creatinine (0.5-1.4) mg/dL Estim Creat Clear Calc Estimated GFR Random Glucose (60-115) mg/dL Calcium (8.4-10.2) mg/dL Total Bilirubin (0.0-1.0) mg/dL AST (5-37) U/L ALT (0-40) U/L Alkaline Phosphatase (39-117) U/L Troponin I High Sens < 3.5 (<3.5-35.0) ng/L B-Natriuretic Peptide 16 (<100) pg/mL Total Protein (6.5-8.0) g/dL Albumin (3.5-5.0) g/dL Lipase (8-78) U/L COVID-19 (MARCIE) (Negative) COVID-19 Clin Com Influenza Type A (VICKIE) Negative (Negative) Influenza Type B (VICKIE) Negative (Negative) Influenza A & B Note See Note 12/22/22 Range/Units 13:40 WBC (4.8-10.8) X10*3/uL RBC (4.60-5.80) X10*6/uL Hgb (14.0-18.0) g/dl Hct (42.0-52.0) % MCV (80.0-98.0) fL MCH (27.0-33.0) pg MCHC (31.0-36.0) g/dl RDW (11.0-16.0) % Plt Count (160-400) X10*3/uL MPV (9.4-12.4) fL Immature Gran % (Auto) (0.0-0.4) % Neut % (Auto) (45-73) % Lymph % (Auto) (20-40) % [place] % (Auto) (2-11) % Eos % (Auto) (0-4) % Baso % (Auto) (0-2) % Lymph # (Auto) (1.2-4.9) X10*3/uL [place] # (Auto) (0.1-1.2) X10*3/uL Eos # (Auto) (0.0-0.4) X10*3/uL Baso # (Auto) (0.0-0.2) X10*3/uL Abs Immat Gran (auto) (0.00-0.03) X10*3/uL Absolute Neuts (auto) (2.0-8.3) x10*3/uL Absolute Nucleated RBC (0.0-0.012) X10*3/uL Nucleated RBC % (auto) (0.0-0.2) /100WBC PT (10.0-13.1) SEC INR (0.9-1.1) Sodium (135-145) mmol/L Potassium (3.3-5.1) mmol/L Chloride (96-108) mmol/L Carbon Dioxide (22-29) mmol/L Anion Gap (12-20) BUN (9-16) mg/dL Creatinine (0.5-1.4) mg/dL Estim Creat Clear Calc Estimated GFR Random Glucose (60-115) mg/dL Calcium (8.4-10.2) mg/dL Total Bilirubin (0.0-1.0) mg/dL AST (5-37) U/L ALT (0-40) U/L Alkaline Phosphatase (39-117) U/L Troponin I High Sens (<3.5-35.0) ng/L B-Natriuretic Peptide (<100) pg/mL Total Protein (6.5-8.0) g/dL Albumin (3.5-5.0) g/dL Lipase (8-78) U/L COVID-19 (MARCIE) Negative (Negative) COVID-19 Clin Com See Note Influenza Type A (VICKIE) (Negative) Influenza Type B (VICKIE) (Negative) Influenza A & B Note Discharge Plan Discharge Clinical Impression: Chest pain Patient Disposition: Elopement Prescriptions: No Action lorazepam [Ativan] 0.5 mg tablet 0.5 mg PO TID PRN (Reason: anxiety) Qty: 14 0RF Discharge Date/Time: 12/22/22 17:30
--- NOTE | 2022-12-22 13:30 | ECG_ITS ---
Test Reason : cp Blood Pressure : / mmHG Vent. Rate : 072 BPM Atrial Rate : 072 BPM P-R Int : 168 ms QRS Dur : 078 ms QT Int : 342 ms P-R-T Axes : 046 -05 017 degrees QTc Int : 374 ms Normal sinus rhythm Minimal voltage criteria for LVH, may be normal variant ( R in aVL ) Borderline ECG When compared with ECG of 25-AUG-2021 14:43, No significant change was found Referred By: Jadyn Landis Electronically Signed By:JOSE MIGUEL BRAGG
[2022-12-22 13:51] LABS: MANUAL DIFF FLAG NO
[2022-12-22 13:53] LABS: Basophils Percent Auto 0.2 % (0-2); Eosinophils Absolute Auto 0.1 X10*3/uL (0.0-0.4); Eosinophils Percent Auto 0.8 % (0-4); Hematocrit 42.5 % (42.0-52.0); Hemoglobin 14.2 g/dl (14.0-18.0); Imm Gran Abs Auto 0.02 X10*3/uL (0.00-0.03); Imm Gran Pct Auto 0.3 % (0.0-0.4); Lymphocytes Absolute Auto 1.2 X10*3/uL (1.2-4.9); Lymphocytes Percent Auto 19.4 % (20-40); Mean Corpuscular HGB Conc 33.4 g/dl (31.0-36.0); Mean Corpuscular Hemoglobin 31.6 pg (27.0-33.0); Mean Corpuscular Volume 94.4 fL (80.0-98.0); Mean Platelet Volume 10.1 fL (9.4-12.4); Monocytes Absolute Auto 0.6 X10*3/uL (0.1-1.2); Neutrophils Absolute Auto 4.3 x10*3/uL (2.0-8.3); Neutrophils Percent Auto 69.3 % (45-73); Platelet Count 210 X10*3/uL (160-400); Red Cell Distribution Width 12.4 % (11.0-16.0); White Blood Count 6.2 X10*3/uL (4.8-10.8)
[2022-12-22 13:59] LABS: Prothrombin Time 11.3 SEC (10.0-13.1)
[2022-12-22 14:08] LABS: COVID-19 Test Negative (Negative); IDNOW Serial# 55D5AD1C; IDNOW Serial# 9DB6401D; Influenza A Negative (Negative); Influenza B2 Negative (Negative)
[2022-12-22 14:19] LABS: B Type Natriuretic Peptide 16 pg/mL (<100)
[2022-12-22 14:53] LABS: Alanine Aminotransferase 19 U/L (0-40); Albumin Level 4.2 g/dL (3.5-5.0); Alkaline Phosphatase 74 U/L (39-117); Anion Gap 10 (12-20); Aspartate Amino Transferase 17 U/L (5-37); Bilirubin Total 0.6 mg/dL (0.0-1.0); Blood Urea Nitrogen 10 mg/dL (9-16); Calcium 9.5 mg/dL (8.4-10.2); Carbon Dioxide 29 mmol/L (22-29); Chloride 105 mmol/L (96-108); Creatinine Clr Calc Pharmacy 89.4; Estimated Glomerular Filt Rate > 60; Glucose Random 92 mg/dL (60-115); Lipase 33 U/L (8-78); Potassium 4.7 mmol/L (3.3-5.1); Sodium 139 mmol/L (135-145); Total Protein 7.2 g/dL (6.5-8.0)
[2022-12-22 15:00] LABS: Troponin-I High Sensitivity < 3.5 ng/L (<3.5-35.0)
== END 2022-12-22 17:30 | disposition left against medical advice (07) ==
PROVIDERS: Nurse Practitioner Family; Emergency Provider Internal Medicine
DX: R07.89 Other chest pain (principal); R06.02 Shortness of breath; Z20.822 Contact with and (suspected) exposure to COVID-19; Z20.828 Contact with and (suspected) exposure to other viral communicable diseases; Z79.899 Other long term (current) drug therapy
CPT/HCPCS: 71046; 80053; 83690; 83880; 84484; 85025; 85610; 87502; 87635; 93005; 99283

== ENCOUNTER 2023-05-03 09:52 | Outpatient (AMB) | payer OTHER, SELFPAY ==
[2023-05-03 10:04] VITALS: BP 134/75; PULSE 77; BMI 27.4
--- NOTE | 2023-05-03 10:04 | MHC.OFFVIS ---
Intake Vital Signs 05/03/23 10:04 Height 5 ft 8 in Weight 180 lb BMI 27.4 BP 134/75 Blood Pressure Location Rt brachial Position Sitting Pulse 77 Intake Visit Reasons: Epidermal cyst on chest Intake Note: This patient presents for an assessment for an epidermal cyst on the chest. Patient c/o; Onset 2 months ago, epidermal cyst on chest, denies pain, denies redness. Wine Steward/Stewardess Required: No Accompanied by: Self / Same As Patient Allergies cholecalciferol (vitamin D3) [From VITAMIN D3] Allergy (Unknown, Unverified 05/03/23 10:08) RASH Medication List - Last Reconciled 05/03/23 by Steven Craig MD lorazepam (Ativan) 0.5 mg PO TID PRN HPI Epidermal cyst on chest HPI Details 62-year-old old male referred for a cyst on his chest wall. He says that he has noticed this lump on his chest wall anteriorly for about few months now. He wants this removed. He feels that this has increased in size and has been uncomfortable. He denies any drainage. [facility] Medical History (Updated 05/03/23 @ 10:34 by Steven Craig MD) Chronic back pain Epidermal inclusion cyst No known health problems Surgical History No pertinent past surgical history Family History Mother Breast cancer Social History Alcohol intake: never Patient Tobacco Use Status: Never used Tobacco Review of Systems Const Denies chills and Denies fever(s) Card Denies chest pain, Denies dyspnea and Denies dyspnea on exertion Resp Denies cough, Denies dyspnea and Denies dyspnea on exertion GI Denies hematochezia and Denies change in bowel habits Denies hematuria and Denies difficulty urinating Musc Reports back pain and Denies limited range of motion Neuro Denies focal weakness and Denies convulsions Psych Denies depression and Denies mood swings Physical Exam Vital Signs: Last Vital Signs Pulse 77 05/03/23 10:04 BP 134/75 05/03/23 10:04 BMI result Body Mass Index 27.4 Const General: comfortable and no acute distress Orientation/consciousness: patient oriented x3 Neck Neck: Yes no lymphadenopathy Chest Other: On the right chest wall is note of a cystic induration, about 2 cm in size, not acutely inflamed Resp Auscultation: clear to auscultation bilaterally Cardio Rhythm: regular rhythm GI Palpation (GI): Soft to palpation, nontender and no guarding Neuro General: patient oriented x3 Assessment & Plan Assessment & Plan (1) Epidermal inclusion cyst: Code(s): L72.0 - Epidermal cyst Plan: He has what appears to be an epidermal inclusion cyst on the anterior chest wall as described above. He wants this removed. I explained the technique of excision under local anesthesia. I discussed the risks including but not limited to bleeding, infections and poor healing. He understands and wants to proceed. This will be done on his next visit here in the office. Coding Level of Care Code New Pt Level 3 (08531) Diagnoses Epidermal inclusion cyst L72.0
== END 2023-05-03 10:36 | disposition home or self-care (01) ==
PROVIDERS: PCP Registered Nurse; Visit Provider Surgery
DX: L72.0 Epidermal cyst (principal)
CPT/HCPCS: 99203

== ENCOUNTER → 2023-05-03 09:52 | Outpatient (BNVA) | payer OTHER, SELFPAY | PROVIDERS: PCP Registered Nurse; Visit Provider Surgery | DX: L72.0 Epidermal cyst (principal) | CPT/HCPCS: 99202 ==

== ENCOUNTER 2023-06-08 10:25 | Emergency (ER) | payer OTHER, SELFPAY ==
--- NOTE | ~2023-06-08 | XR_ITS ---
EXAMINATION: XR RIBS, RIGHT, PA CHEST CLINICAL INFORMATION: Chest radiographs dated 12/22/2022. COMPARISON: None available. TECHNIQUE: 3 views of the right ribs were obtained along with a PA view of the chest. FINDINGS: Lungs are clear. No consolidation, pneumothorax, or pleural effusion. The cardiomediastinal silhouette and pulmonary vasculature are normal. Osseous structures are unremarkable. Ribs are intact. No fractures are identified. XR/XR ribs RT min 3V w CXR1V IMPRESSION: Unremarkable examination.
[2023-06-08 11:20] VITALS: BP 134/100; PULSE 58; RESP 19; TEMP 36.6; O2SAT 100; BMI 28.3
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
[2023-06-08 11:47] LABS: MANUAL DIFF FLAG NO
[2023-06-08 11:53] LABS: Basophils Percent Auto 0.5 % (0-2); Eosinophils Absolute Auto 0.1 X10*3/uL (0.0-0.4); Eosinophils Percent Auto 1.8 % (0-4); Hematocrit 44.1 % (42.0-52.0); Hemoglobin 14.5 g/dl (14.0-18.0); Imm Gran Abs Auto 0.02 X10*3/uL (0.00-0.03); Imm Gran Pct Auto 0.4 % (0.0-0.4); Lymphocytes Absolute Auto 1.1 X10*3/uL (1.2-4.9); Lymphocytes Percent Auto 19.3 % (20-40); Mean Corpuscular HGB Conc 32.9 g/dl (31.0-36.0); Mean Corpuscular Hemoglobin 32.6 pg (27.0-33.0); Mean Corpuscular Volume 99.1 fL (80.0-98.0); Monocytes Absolute Auto 0.8 X10*3/uL (0.1-1.2); Monocytes Percent Auto 14.4 % (2-11); Neutrophils Absolute Auto 3.6 x10*3/uL (2.0-8.3); Neutrophils Percent Auto 63.6 % (45-73); Platelet Count 197 X10*3/uL (160-400); Red Blood Count 4.45 X10*6/uL (4.60-5.80); Red Cell Distribution Width 12.3 % (11.0-16.0); White Blood Count 5.6 X10*3/uL (4.8-10.8)
[2023-06-08 12:07] LABS: Alanine Aminotransferase 20 U/L (0-40); Albumin Level 4.3 g/dL (3.5-5.0); Alkaline Phosphatase 72 U/L (39-117); Anion Gap 8 (12-20); Aspartate Amino Transferase 25 U/L (5-37); Bilirubin Total 0.3 mg/dL (0.0-1.0); Blood Urea Nitrogen 14 mg/dL (9-16); Calcium 10.1 mg/dL (8.4-10.2); Carbon Dioxide 28 mmol/L (22-29); Chloride 107 mmol/L (96-108); Creatinine Clr Calc Pharmacy 78.9; Estimated Glomerular Filt Rate > 60; Glucose Random 97 mg/dL (60-115); Lipase 41 U/L (8-78); Potassium 4.7 mmol/L (3.3-5.1); Sodium 138 mmol/L (135-145); Total Protein 7.7 g/dL (6.5-8.0)
[2023-06-08 14:55] VITALS: BP 163/85; PULSE 74; RESP 18; TEMP 36.8; O2SAT 100
[2023-06-08 16:00] VITALS: BP 146/84; PULSE 62; RESP 16; TEMP 36.8; O2SAT 98
== END 2023-06-08 16:34 | disposition home or self-care (01) ==
PROVIDERS: Physician Assistant; Emergency Provider Emergency Medicine
DX: M79.18 Myalgia, other site (principal); G89.29 Other chronic pain; M54.50 Low back pain, unspecified; R10.11 Right upper quadrant pain
CPT/HCPCS: 36415; 71101; 80053; 83690; 85025; 99283; 99284

== ENCOUNTER 2023-06-29 14:09 | Outpatient (REF) | payer OTHER, SELFPAY | END 2023-06-29 14:10 | disposition home or self-care (01) | LOC: HO.LNP 14:09 | PROVIDERS: Visit Provider Surgery | DX: L72.0 Epidermal cyst (principal) | CPT/HCPCS: 11402; 88304 ==

== ENCOUNTER 2023-06-29 14:09 | Outpatient (AMB) | payer OTHER, SELFPAY ==
--- NOTE | 2023-06-29 14:11 | A.OFFVIS_ITS ---
Intake Vital Signs 06/29/23 14:22 BP 123/77 Blood Pressure Location Rt brachial Position Sitting Pulse 75 Intake Visit Reasons: Exc cyst/ chest Intake Note: This patient presents for in-office procedure for excision of cyst on the chest. Patient c/o; reports no changes. 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 [facility] Medical History Epidermal inclusion cyst Chronic back pain No known health problems Surgical History No pertinent past surgical history Family History Mother Breast cancer Social History Alcohol intake: never Patient Tobacco Use Status: Never used Tobacco Physical Exam Vital Signs: Last Vital Signs Pulse 75 06/29/23 14:22 BP 123/77 06/29/23 14:22 Office Procedures Excision Details: He was placed in supine position. The epidermal inclusion cyst was seen on the right anterior chest wall area. This was prepped and draped. Lidocaine 1% was used for local anesthesia. I made an elliptical incision on the skin overlying the cyst using blade 15. This was carried down through the full-thickness of the skin through the subcutaneous fat to excise the entire cyst with the capsule intact. The cyst was very cool in shape and measured about 1.3 cm in diameter. This was sent as a specimen The incision was closed with full-thickness nylon 3-0 simple interrupted sutures. Dressings were applied. The procedure was completed. He tolerated the procedure well. There were no immediate complications. There was minimal blood loss. He was given wound care instructions. 41171-ybtug/arms/legs 1.1-2cm Procedure code (CPT) selection complete Assessment & Plan Assessment & Plan (1) Epidermal inclusion cyst: Code(s): L72.0 - Epidermal cyst Plan: He was given wound care instructions and will be seen in the office for removal sutures in about 2 weeks. Coding Level of Care Code Global (38737) Diagnoses Epidermal inclusion cyst L72.0 CPT Codes Trunk/Arms/Legs - CPT: 77128-dhwop/arms/legs 1.1-2cm ([id number])
[2023-06-29 14:22] VITALS: BP 123/77; PULSE 75
== END 2023-06-29 14:40 | disposition home or self-care (01) ==
PROVIDERS: Visit Provider Surgery
DX: L72.0 Epidermal cyst (principal)
CPT/HCPCS: 11402

== ENCOUNTER 2023-06-29 14:57 | Emergency (ER) | payer OTHER, SELFPAY ==
--- NOTE | ~2023-06-29 | US_ITS ---
EXAMINATION: US VENOUS ULTRASOUND WITH DOPPLER LOWER EXTREMITY, LEFT CLINICAL INFORMATION: Left leg pain COMPARISON: None available. TECHNIQUE: Ultrasound of the deep veins is performed from the hip to the calf with compression sonography and color and pulse Doppler assessment. Spectral analysis with color-flow imaging is performed. FINDINGS: There is normal venous compression and respiratory variation and augmented flow. The visualized common femoral vein, superficial femoral vein, profunda femoral vein, popliteal vein, and the trifurcation region shows no evidence of deep venous thrombosis. There is no significant popliteal fossa cyst. US/US venous duplex LE LT IMPRESSION: No DVT demonstrated in the left lower extremity.
--- NOTE | ~2023-06-29 | XR_ITS ---
EXAMINATION: XR KNEE, LEFT CLINICAL INFORMATION: Pain. COMPARISON: None available. TECHNIQUE: AP, lateral, and both oblique views of the left knee. FINDINGS: No fracture or joint effusion. Alignment is anatomic. Joint spaces are maintained. No abnormal soft tissue calcification. XR/XR knee LT 3V IMPRESSION: Normal left knee.
[2023-06-29 15:06] VITALS: BP 144/84; PULSE 69; RESP 14; TEMP 36.6; O2SAT 99; BMI 27.9
--- NOTE | 2023-06-29 15:13 | ED.GENADULT ---
HPI - General Adult General Chief complaint: Weakness Stated complaint: numbness/tingling on L leg Time Seen by Provider: 06/29/23 19:39 Source: patient Mode of arrival: ambulatory Limitations: no limitations History of Present Illness HPI narrative: Patient is a 62 year old male who presents to the ED today due to left leg pain. He reports that his symptoms started earlier today and that he's now having pain with walking due to pain in his left knee. Patient denies any trauma or injury prior to symptom onset. No associated back pain noted. He has not taken any OTC medications to alleviate his symptoms. He denies experiencing symptoms similar to this prior. Related Data Previous Rx's Medication Instructions Recorded lorazepam 0.5 mg tablet (Ativan) 0.5 mg PO TID PRN anxiety #14 tabs 09/07/20 ibuprofen 600 mg tablet 600 mg PO Q8H PRN pain #14 tabs 06/08/23 Allergies Allergy/AdvReac Type Severity Reaction Status Date / Time cholecalciferol (vitamin D3) Allergy Unknown RASH Verified 06/29/23 14:12 [From VITAMIN D3] Review of Systems Constitutional: Constitutional: Denies body ache(s), Denies chills and Denies headache(s) ENT: Denies headache(s) Cardiovascular: Cardiovascular: Denies chest pain and Denies dyspnea Respiratory: Respiratory: Denies dyspnea Gastrointestinal: Gastrointestinal: Denies abdominal pain and Denies vomiting Musculoskeletal: Musculoskeletal: Denies back pain, Denies deformity and Reports arthralgias Neurologic: Denies headache(s) PMFSH Past Medical History Medical History Epidermal inclusion cyst Chronic back pain No known health problems Surgical History No pertinent past surgical history Family History Family History Mother Breast cancer Social History Social History Alcohol intake: never Patient Tobacco Use Status: Never used Tobacco Advance Directives: No Advance Directives Information Provided: No Physical Exam ED Vital Signs: Vital Signs - 24 hr 06/29/23 15:06 06/29/23 19:16 Temperature 97.9 F Pulse Rate 69 74 Respiratory Rate 14 17 Blood Pressure 144/84 H 169/82 H Pulse Oximetry 99 96 Oxygen Delivery Method Room Air Room Air BMI result Body Mass Index 27.9 Const General: healthy appearing, comfortable, no acute distress, alert and awake Nutritional Appearance: well nourished Orientation/consciousness: patient oriented x3 HENMT Head: Yes normocephalic and Yes atraumatic Eyes Eyelids: Yes eyelids normal Conjunctivae: conjunctivae normal Sclerae: sclerae normal Corneas: corneas normal Pupils: Equal, round and reactive pupils present EOM: EOMs intact bilaterally Neck Neck: Yes full ROM Skin General skin exam: no rashes or lesions noted and elasticity normal Neuro General: patient oriented x3 Cranial nerves: Yes Equal, round and reactive pupils present and Yes Bilaterally intact EOM present Cognition (Neuro): normal cognition Extrem Other: Moving all extremities well without any obvious deformities including the left knee. No edema, skin changes or tenderness to the left knee. The patient has full range of motion flexion extension. No calf tenderness, no palpable cords Course Course Course Narrative: This is an RME: Additional HPI, ROS, PE not included below will be deferred to primary provider. This is a 62-year-old, with a past medical history of chronic pain presenting to the emergency department for evaluation of sudden right knee and left leg pain and numbness which started while he was walking today. Patient is anxious appearing, vital signs stable. Knee is nontender, with good range of motion. Numbness is only surrounding knee, does not have any tingling or numbness into thigh. No increased back pain. Plan: Ultrasound, further ER evaluation needed. Medications Administered Discontinued Medications Generic Name Dose Route Start Last Admin Trade Name Freq PRN Reason Stop Dose Admin Ibuprofen 600 mg 06/29/23 19:56 06/29/23 20:05 Ibuprofen 600 Mg Tablet PO 06/29/23 19:57 600 mg ONCE ONE Administration Medical Decision Making Medical Decision Making MDM Narrative: 62-year-old male presents for evaluation of atraumatic left knee pain. His pain started today. An ultrasound which ruled out DVT. Plan for x-ray. Patient medicated with ibuprofen. Differential Diagnosis Differential Diagnoses: The differential diagnosis associated with the presentation includes Left knee pain Arthritis DVT less likely Left knee sprain gout Independent Interpretation I performed an independent interpretation of an: Plain X-Ray (X-ray left knee does not show any obvious fractures) Radiology Impression Discussion of test interpretation with radiology: I have reviewed the radiologist's reading. (Negative DVT study) Radiologist Impression: Normal right knee Discharge Plan Discharge Clinical Impression: Acute knee pain Patient Disposition: Home, Self-Care Instructions: Knee Pain (ED) Additional Instructions: Your ultrasound did not show any evidence of blood clots. Your x-ray did not show any fractures. Use Motrin and/or Tylenol for pain Follow-up with your primary doctor Prescriptions: No Action lorazepam [Ativan] 0.5 mg tablet 0.5 mg PO TID PRN (Reason: anxiety) Qty: 14 0RF ibuprofen 600 mg tablet 600 mg PO Q8H PRN (Reason: pain) Qty: 14 0RF
[2023-06-29 19:16] VITALS: BP 169/82; PULSE 74; RESP 17; O2SAT 96
--- OUTSIDE RECORDS SUMMARY | 2023-06-29 19:31 | XMS_ITS | Patient Health Record ---
Author Name Unknown Organization [facility] Care Team Providers Care Acid Wash Operator Name Role Phone Efren Schaefer Unavailable [phone] RodriguezMekaJavon Yany Unavailable [phone] ENCOUNTERS from 1960 to 2023-06-29 Encounter Location Date Provider Diagnosis [facility] [address] [place] [address] [phone] May, Efren Schaefer [facility] [address] [place] [address] [phone] May, Efren Schaefer [facility] [address] [place] [address] [phone] May, Efren Schaefer [facility] [address] [place] [address] [phone] Apr, Efren Segundoacho [facility] [address] [place] [address] [phone] Mar, Efren Schaefer [facility] [address] [place] [address] [phone] February, Efren Schaefer [facility] [address] [place] [address] [phone] February, Efren Schaefer [facility] [address] [place] [address] [phone] February, Efren Schaefer [facility] [address] [place] [address] [phone] Dec, Efren Segundoacho [facility] [address] [place] [address] [phone] Nov, Efren Segundoacho [facility] [address] [place] [address] [phone] Nov, Efren Segundoacho [facility] [address] [place] [address] [phone] Nov, Efren Segundoacho [facility] [address] [place] [address] [phone] Nov, Efren Schaefer [facility] [address] [place] [address] [phone] Nov, Efren Schaefer [facility] [address] [place] [address] [phone] Nov, Efren Schaefer [facility] [address] [place] [address] [phone] Jul, Efren Schaefer [facility] [address] [place] [address] [phone] Jul, Efren Schaefer [facility] [address] [place] [address] [phone] Jun, Efren Schaefer [facility] [address] [place] [address] [phone] Jun, Efren Schaefer [facility] [address] [place] [address] [phone] May, Efren Schaefer [facility] [address] [place] [address] [phone] May, Yany Enriquez [facility] [address] [place] [address] [phone] February, Efren Segundoacho [facility] [address] [place] [address] [phone] Dec, Jameel Feliciano [facility] [address] [place] [address] [phone] February, Jameel Feliciano SOCIAL HISTORY Sex Assigned At : Social History Observation Description Sex Assigned At Unknown REASON FOR REFERRAL No Information REASON FOR VISIT No Information MENTAL STATUS No Information PLAN OF TREATMENT No Information Insurance Providers Payer Name Payer Address Payer Phone Insured Name Patient Relationship to Insured Coverage Start Date Coverage End Date Subscriber Number Group Number [id number] [employer]- Part B [employer] [address] [facility] [phone] Ra jan Wong Self - patient is the insured
[2023-06-29] MEDS: Ibuprofen 600 MG TABLET PO (20:05)
== END 2023-06-29 21:24 | disposition home or self-care (01) ==
PROVIDERS: Emergency Provider Internal Medicine
DX: M79.662 Pain in left lower leg (principal); R53.1 Weakness; Z79.899 Other long term (current) drug therapy
CPT/HCPCS: 73562; 93971; 99283; 99284

== ENCOUNTER 2023-07-13 14:00 | Outpatient (AMB) | payer OTHER, SELFPAY ==
--- NOTE | 2023-07-13 14:05 | MHC.OFFVIS ---
Intake Vital Signs 07/13/23 14:11 Height 5 ft 8 in BP 132/77 Blood Pressure Location Rt brachial Position Sitting Pulse 79 Intake Visit Reasons: s/p excision cyst of chest wall Intake Note: This patient presents for a post-op assessment status post excision cyst of chest wall. Patient c/o; reports had to go to the ER the same day he had the excision in office due to tingling and numbness of the left foot, reports no concerns with the surgical site. Administration Professional Required: No Accompanied by: Self / Same As Patient Allergies cholecalciferol (vitamin D3) [From VITAMIN D3] Allergy (Unknown, Verified 07/13/23 14:11) RASH HPI s/p excision cyst of chest wall HPI Details He underwent excision of a cyst from the chest wall under local anesthesia last 06/30/2023. He tolerated the procedure well. Her currently denies significant complaints. [facility] Medical History Epidermal inclusion cyst Chronic back pain No known health problems Surgical History History of excision of epidermal inclusion cyst No pertinent past surgical history (~06/29/23) Family History Mother Breast cancer Social History Alcohol intake: never Patient Tobacco Use Status: Never used Tobacco Review of Systems Const Denies chills and Denies fever(s) Card Denies chest pain, Denies dyspnea and Denies dyspnea on exertion Resp Denies cough, Denies dyspnea and Denies dyspnea on exertion GI Denies hematochezia and Denies change in bowel habits Denies hematuria and Denies difficulty urinating Musc Denies back pain and Denies limited range of motion Neuro Denies focal weakness and Denies convulsions Psych Denies depression and Denies mood swings Physical Exam Vital Signs: Last Vital Signs Pulse 79 07/13/23 14:11 BP 132/77 07/13/23 14:11 Const General: comfortable and no acute distress Chest Other: Excision site on the chest wall is well healed, not infected, sutures intact Assessment & Plan Assessment & Plan (1) Epidermal inclusion cyst: Code(s): L72.0 - Epidermal cyst Plan: Status post excision. The incision is well healing. I removed all his sutures. His path report shows an epidermal inclusion cyst. He can follow up on a p.r.n. basis. Coding Level of Care Code Global (13341) Diagnoses Epidermal inclusion cyst L72.0
[2023-07-13 14:11] VITALS: BP 132/77; PULSE 79
== END 2023-07-13 14:17 | disposition home or self-care (01) ==
PROVIDERS: Visit Provider Surgery
DX: L72.0 Epidermal cyst (principal)
CPT/HCPCS: 99024

== ENCOUNTER → 2023-07-13 14:00 | Outpatient (BNVA) | payer OTHER, SELFPAY | PROVIDERS: Visit Provider Surgery ==

== ENCOUNTER 2024-09-12 16:25 | Emergency (ER) | payer OTHER, SELFPAY ==
--- NOTE | ~2024-09-12 | CT_ITS ---
EXAMINATION: NONCONTRAST HEAD CT NONCONTRAST MAXILLOFACIAL CT NONCONTRAST CERVICAL SPINE CT INDICATION INFORMATION: Head injury, neck pain COMPARISON: None TECHNIQUE: Separate noncontrast CT examinations of the head, maxillofacial bones, and cervical spine were performed. Coronal and sagittal images were created for each examination at the technologist workstation. This CT examination was performed using dose optimization techniques as appropriate, variously including the following: *Automated exposure control *Adjustment of mA and/or kV according to patient size (this includes techniques or standardized protocols for targeted exams where dose is matched to indication/reason for exam; i.e. extremities or head) *Use of iterative reconstruction technique DLP: 365 mGy-cm FINDINGS: Head: There is no evidence of acute intracranial hemorrhage or territorial infarction. No abnormal mass effect or midline shift is seen. Blevins to white matter differentiation is well preserved. No extra-axial fluid collections are identified. No hydrocephalus. No significant volume loss. There is no abnormal attenuation within the brain parenchyma. No acute soft tissue abnormality. No calvarial fracture. The mastoid air cells are well aerated. Maxillofacial: No acute maxillofacial fractures are seen. The frontal, ethmoid, and sphenoid sinuses are well aerated. The uncinate process is normal bilaterally. The infundibula and middle meati are patent. The nasal septum is midline. The mandibular heads are well-seated in the condylar fossa. The orbits demonstrate a normal appearance bilaterally. The globes are intact, and there are no suspicious findings to suggest retrobulbar hemorrhage. Cervical spine: There is anatomic alignment of the vertebral bodies and posterior elements. The atlantoaxial and atlantooccipital articulations are intact. Vertebral body heights are maintained. There is multilevel intervertebral disc space narrowing with endplate osteophyte formation and facet arthropathy. No evidence of acute fracture. No prevertebral soft tissue swelling. Visualized portions of the lung apices are unremarkable. The thyroid gland is unremarkable. CT/CT cervical spine wo IV con IMPRESSION: 1. No acute intracranial process. 2. No acute maxillofacial fracture. 3. No acute fracture or malalignment of the cervical spine. Electronically signed by: Ney Cameron MD 09/12/2024 06:20 PM [facility]
--- NOTE | ~2024-09-12 | CT_ITS ---
EXAMINATION: NONCONTRAST HEAD CT NONCONTRAST MAXILLOFACIAL CT NONCONTRAST CERVICAL SPINE CT INDICATION INFORMATION: Head injury, neck pain COMPARISON: None TECHNIQUE: Separate noncontrast CT examinations of the head, maxillofacial bones, and cervical spine were performed. Coronal and sagittal images were created for each examination at the technologist workstation. This CT examination was performed using dose optimization techniques as appropriate, variously including the following: *Automated exposure control *Adjustment of mA and/or kV according to patient size (this includes techniques or standardized protocols for targeted exams where dose is matched to indication/reason for exam; i.e. extremities or head) *Use of iterative reconstruction technique DLP: 365 mGy-cm FINDINGS: Head: There is no evidence of acute intracranial hemorrhage or territorial infarction. No abnormal mass effect or midline shift is seen. Blevins to white matter differentiation is well preserved. No extra-axial fluid collections are identified. No hydrocephalus. No significant volume loss. There is no abnormal attenuation within the brain parenchyma. No acute soft tissue abnormality. No calvarial fracture. The mastoid air cells are well aerated. Maxillofacial: No acute maxillofacial fractures are seen. The frontal, ethmoid, and sphenoid sinuses are well aerated. The uncinate process is normal bilaterally. The infundibula and middle meati are patent. The nasal septum is midline. The mandibular heads are well-seated in the condylar fossa. The orbits demonstrate a normal appearance bilaterally. The globes are intact, and there are no suspicious findings to suggest retrobulbar hemorrhage. Cervical spine: There is anatomic alignment of the vertebral bodies and posterior elements. The atlantoaxial and atlantooccipital articulations are intact. Vertebral body heights are maintained. There is multilevel intervertebral disc space narrowing with endplate osteophyte formation and facet arthropathy. No evidence of acute fracture. No prevertebral soft tissue swelling. Visualized portions of the lung apices are unremarkable. The thyroid gland is unremarkable. CT/CT head/brain wo IV con IMPRESSION: 1. No acute intracranial process. 2. No acute maxillofacial fracture. 3. No acute fracture or malalignment of the cervical spine. Electronically signed by: Ney Cameron MD 09/12/2024 06:20 PM [facility]
[2024-09-12 16:28] VITALS: BP 182/102; PULSE 115; O2SAT 97
[2024-09-12 16:32] VITALS: BP 170/93; PULSE 100; RESP 19; TEMP 37.2; O2SAT 97; BMI 26.6
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
[2024-09-12] MEDS: Diphth,Pertus(ACell),Tet Adult 0.5 ML SYRINGE IM (16:54)
[2024-09-12] MEDS: Acetaminophen 325 MG TABLET 975 MG PO (16:56)
--- OUTSIDE RECORDS SUMMARY | 2024-09-12 16:57 | XMS_ITS ---
Author Organization [facility] Address [address], [place] [id number] Care Team Providers Care Event Marketing Manager Name Role Phone Benefit, Application Primary Care Provider Unava Yany Meza Unavailable [phone] Encounters Encounter Location Date Provider Diagnosis [facility] [address] [place] [address] [phone] 08/16/2024 Yany Enriquez Plan Of Treatment No Information Progress Notes * Justen MALDONADODOB:1960 (64 yo M)Acc No.[id number]:08/16/2024 Patient:?Justen MALDONADO :1960???Age:64 Y???Sex:Male Address:[facility] [address], [facility] [place] [place], [address] * * Date:?
--- OUTSIDE RECORDS SUMMARY | 2024-09-12 16:57 | XMS_ITS ---
Author Organization [facility] Address [address], [place] [id number] Care Team Providers Care Medical Investigator Name Role Phone Benefit, Application Primary Care Provider UnaYany Garcia REASON FOR VISIT housing Encounters Encounter Location Date Provider Diagnosis [facility] [address] [place] [address] [phone] 08/08/2024 Yany Enriquez Plan Of Treatment No Information Progress Notes * Justen MALDONADODOB:1960 (64 yo M)Acc No.[id number]:08/08/2024 Case Management Patient:?Justen Maldonado Provider:?Yany Enriquez :1960???Age:64 Y???Sex:Male Fred e:08/08/2024 Address:[facility] [address] [place] [id number] Pcp:Application Benefit Subjective: * Chief Complaints: * ???1. Housing. * HPI: ???Social Service:?Date of encounter?08/08/2024.?Referral Source?walk-in, self.?Interpretation for medical provider?housing.?Action Taken?Housing?Search.?Advocacy?none.?Follow-up Required:?yes.?Pt comprehension?Pt agrees with plan, Patient understood process and assisted with process.?Action taken (old)?form completion.? * Medical History:? Objective: Assessment: Plan: * Treatment: * Images: Billing Information: * Visit Code:? * Procedure Codes:? Care Plan Details* * Sign off status: Completed true * Provider:?Yany Enriquez Date:? Generated for Rodrigo valencia/Son/Marisol on:?09/12/2024 04:57 PM EST History and Physical Notes * HPI (History of Present Illness) Category Sub-Category Detail Notes Social Service Referral Source walk-in, self Interpretation for medical provider hous ing Action taken (old) form completion Advocacy none Follow-up Required: yes Pt comprehension Pt agrees with plan, Patient understood process and assisted with process Action Taken Housing: Search Date of encounter 08/08/2024
--- OUTSIDE RECORDS SUMMARY | 2024-09-12 16:58 | XMS_ITS | Patient Health Record ---
Author Organization [facility] Address [address], [place] [id number] Care Team Providers Care Spinning Frame Fixer Name Role Phone Benefit, Application Primary Care Provider Yany Boyle Unavailable [phone] Efren Whaley Unavailable [phone] Reason For Referral No Information Encounters Encounter Location Date Provider Diagnosis [facility] [address] [place] [address] [phone] 03/19/2024 Efren Whaley [facility] [address] [place] [address] [phone] 07/10/2024 Yany Enriquez [facility] [address] [place] [address] [phone] 07/23/2024 Yany Enriquez [facility] [address] [place] [address] [phone] 08/08/2024 Yany Enriquez [facility] [address] [place] [address] [phone] 08/01/2024 Yany Enriquez [facility] [address] [place] [address] [phone] 08/16/2024 Yany Enriquez Plan Of Treatment No Information Insurance Providers Payer Name Payer Address Payer Phone Subscriber Number Group Number Insured Name Patient Relationship to Insured Coverage Start Date Coverage End Date [id number]- Part B [employer] [address] [place] [address] Justen Wong Self - patient is the insured
--- OUTSIDE RECORDS SUMMARY | 2024-09-12 16:58 | XMS_ITS ---
Author Organization [facility] Address [address] [place] [phone] Care Team Providers Care Customer Service Engineer Name Role Phone Benefit, Application Primary Care Provider Yany Boyle Unavailable REASON FOR VISIT Copy S.S Encounters Encounter Location Date Provider Diagnosis [facility] [address] [place] [phone] 08/01/2024 Yany Enriquez Plan Of Treatment No Information Progress Notes * Justen MALDONADODOB:1960 (64 yo M)Acc No.[id number]:08/01/2024 Case Management Patient:?Justen Maldonado Provider:?Yany Enriquez :1960???Age:64 Y???Sex:Male Fred e:08/01/2024 Address:[facility] [address] [place] [id number] Pcp:Application Benefit Subjective: * Chief Complaints: * ???1. Copy S.S. * HPI: ???Social Service:?Date of encounter?08/01/2024.?Referral Source?walk-in, self.?Interpretation for medical provider?Social Security Card.?Advocacy?none.?Follow-up Required:?yes.?Pt comprehension?Pt agrees with plan, Patient understood process and assisted with process.?Action taken (old)?form completion, Letter given to patient after photo copy made.? * Medical History:? Objective: Assessment: Plan: * Treatment: * Images: Billing Information: * Visit Code:? * Procedure Codes:? Care Plan Details* * Sign off status: Completed true * Provider:?Yany Enriquez Date:? Generated for Rodrigo valencia/Son/Marisol on:?09/12/2024 04:57 PM EST History and Physical Notes * HPI (History of Present Illness) Category Sub-Category Detail Notes Social Service Referral Source walk-in, self Interpretation for medical provider Soci al Security Card Action taken (old) form completion, Let ter given to patient after photo copy made Advocacy none Follow-up Required: yes Pt comprehension Pt agrees with plan, Patient understood process and assisted with process Date of encounter 08/01/2024
[2024-09-12 18:39] VITALS: BP 138/79; PULSE 90; RESP 18; TEMP 36.3; O2SAT 100
[2024-09-12 18:50] VITALS: BP 138/79; PULSE 90; RESP 18; TEMP 36.3; O2SAT 100
== END 2024-09-12 18:50 | disposition home or self-care (01) ==
PROVIDERS: Emergency Provider Emergency Medicine
DX: S09.90XA Unspecified injury of head, initial encounter (principal); S01.112A Laceration without foreign body of left eyelid and periocular area, initial encounter; Y00.XXXA Assault by blunt object, initial encounter; M54.50 Low back pain, unspecified; Y93.9 Activity, unspecified; Y92.048 Other place in boarding-house as the place of occurrence of the external cause; Y99.9 Unspecified external cause status; Z23 Encounter for immunization
CPT/HCPCS: 12011; 70450; 70486; 72125; 90471; 90715; 99283; 99284

== ENCOUNTER 2024-09-23 10:42 | Emergency (ER) | payer OTHER, SELFPAY ==
--- NOTE | ~2024-09-23 | XR_ITS ---
EXAMINATION: XR CHEST CLINICAL INFORMATION: cough x1 month COMPARISON: Chest x-ray on 12/22/2022 TECHNIQUE: 2 views of the chest were obtained. FINDINGS: No significant abnormality is noted involving the heart, lungs, mediastinum, bony thorax or soft tissues. XR/XR chest 2V IMPRESSION: Unremarkable examination. Electronically signed by: Nisa Ballard MD 09/23/2024 01:20 PM [facility]
[2024-09-23 10:59] VITALS: BP 150/80; PULSE 82; RESP 20; TEMP 36.6; O2SAT 99; BMI 28.2
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
[2024-09-23] MEDS: Benzonatate 100 MG CAPSULE 200 MG PO (15:23)
[2024-09-23] MEDS: Tetracaine HCl/PF 0.5% Oph Sol 4 ML DROPS 1 DROP EYE-LEFT (15:24)
[2024-09-23] MEDS: Fluorescein Sodium STRIP 1 STRIP EYE-LEFT (15:24)
[2024-09-23 16:30] VITALS: BP 150/80; PULSE 82; RESP 20; TEMP 36.6; O2SAT 99
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
== END 2024-09-23 16:31 | disposition home or self-care (01) ==
PROVIDERS: Emergency Provider Emergency Medicine Emergency Medical Services
DX: J40 Bronchitis, not specified as acute or chronic (principal); R05.9 Cough, unspecified; M25.561 Pain in right knee
CPT/HCPCS: 71046; 99282; 99283

== ENCOUNTER 2025-05-13 15:48 | Outpatient (REF) | payer OTHER, SELFPAY ==
--- OUTSIDE RECORDS SUMMARY | 2025-05-13 16:30 | XMS_ITS | Encounter Summary ---
Author Organization [employer] Address [address] [place] [address] Care Team Providers Care Salon Manager Name Role Phone Mihaela Cool MD Primary Care Pro vider Encounter Details Date Type Department Care Team (Latest Contact Info) Description 05/13/2025 Travel Social History Tobacco Use Types Packs/Day Years Used Date Smoking Tobacco: Never Passive Smoke Exposure: Never Smokeless Tobacco: Never Depression Answer Date Recorded Patient Health Questionnaire-9 Score 15 04/10/2025 Patient Health Questionnaire-9 Score 15 04/10/2025 Last PHQ-9: Questionnaire Data Not on file 0 04/10/2025 Housing Stability Answer Date Recorded What is your housing situation today? I have sukumar ashby 04/10/[address] you li ve. Do you have problems with any of the following? None of the above 04/10/2025 Food Insecurity Answer Date Recorded Within the past 12 months, y ou worried that your food would run out before you got money to buy more: Never True 04/10/2025 Within the past 12 months,th e food you bought just didn't last and you didn't have enough money to get more: Never True Transportation Answer Date Recorded In the past 12 months, has l ack of transportation kept you from medical appts, meetings, work or from getting things needed for daily living? No 04/10/2025 Utilities Answer Date Recorded In the past 12 months, has t he electric, gas, oil or water company threatened to shut off services in your home? Yes 04/10/2025 Depression Answer Date Recorded Patient Health Questionnaire-2 Score 5 04/10/2025 Internet Access Answer Date Recorded Internet Access Q1 Yes 04/10/2025 Internet Access Q2 Not on file 04/10/2025 Sex and Gender Information Value Date Recorded Sex Assigned at Male 08/15/2022 10:33 AM EDT Legal Sex Male 10:33 AM EDT Gender Identity Male 08/15/2022 10:33 AM EDT Sexual Orientation Straight 08/15/2022 10 :33 AM EDT documented as of this encounter Plan of Treatment Upcoming Encounters Date Type Department Care Team (Late st Contact Info) Description 06/06/2025 10:15 AM EDT Office Visit [facility] MED[facility]INE [address] [place] [address] Mihaela Cool MD [address] [place] [phone] documented as of this encounter Visit Diagnoses Not on filedocumented in this encounter Additional Health Concerns Assessment Noted Time PHQ-9 Depression Total Score: 15 025 3:14 PM EDT documented as of this encounter Care Teams Salon Manager Relationship Specialty Start Date End Date Mihaela Cool MD [address] [place] [id number] PCP - General Internal Medicine 04/11/24 documented as of this encounter
--- OUTSIDE RECORDS SUMMARY | 2025-05-13 16:31 | XMS_ITS | Patient Health Record ---
Author Organization [facility] Address [address] [place], [place] [id number] Care Team Providers Care Hvac Tech Name Role Phone [employer] - DO NOT USE, Benefit Application Prim josé miguel Care Provider Unavailable Yany Enriquez Unavailable [phone] Reason For Referral No Information Encounters Encounter Location Date Provider Diagnosis [facility] [address] [place] [phone] 07/10/2024 Yany Enriquez [facility] [address] [place] [phone] 07/23/2024 Yany Enriquez [facility] [address] [place] [id number] 08/08/2024 Yany Enriquez [facility] [address] [place] [address] [phone] 08/01/2024 Yany Enriquez [facility] [address] [place] [address] [phone] 10/01/2024 Yany Enriquez [facility] [address] [place] [address] [phone] 10/24/2024 Yany Enriquez [facility] [address] [place] [address] [id number] 05/01/2025 Yany Enriquez [facility] [address] [place] [phone] 08/16/2024 Yany Enriquez Plan Of Treatment No Information Insurance Providers Payer Name Payer Address Payer Phone Subscriber Number Group Number Insured Name Patient Relationship to Insured Coverage Start Date Coverage End Date [place] [employer]- Part B [employer] [address] [place] [address] Justen Wong Self - patient is the insured
[2025-05-13 18:07] LABS: MANUAL DIFF FLAG NO
[2025-05-13 18:16] LABS: Hematocrit 41.9 % (42.0-52.0); Hemoglobin 13.9 g/dl (14.0-18.0); Imm Gran Abs Auto 0.01 X10*3/uL (0.00-0.03); Imm Gran Pct Auto 0.2 % (0.0-0.4); Lymphocytes Absolute Auto 1.1 X10*3/uL (1.2-4.9); Mean Corpuscular HGB Conc 33.2 g/dl (31.0-36.0); Mean Corpuscular Hemoglobin 32.0 pg (27.0-33.0); Mean Corpuscular Volume 96.3 fL (80.0-98.0); NRBC Abs Auto 0.000 X10*3/uL (0.0-0.012); NRBC Pct Auto 0.0 /100WBC (0.0-0.2); Platelet Count 193 X10*3/uL (160-400); Red Blood Count 4.35 X10*6/uL (4.60-5.80); White Blood Count 4.7 X10*3/uL (4.8-10.8)
[2025-05-13 18:42] LABS: Alanine Aminotransferase 30 U/L (0-40); Albumin Level 4.6 g/dL (3.5-5.0); Alkaline Phosphatase 92 U/L (39-117); Anion Gap 13 (12-20); Aspartate Amino Transferase 26 U/L (5-37); Blood Urea Nitrogen 10 mg/dL (9-16); Calcium 9.5 mg/dL (8.4-10.2); Carbon Dioxide 26 mmol/L (22-29); Chloride 103 mmol/L (96-108); Cholesterol 202 mg/dL (<200); Estimated Glomerular Filt Rate > 60; HDL Cholesterol 46 mg/dL (>40); Potassium 3.8 mmol/L (3.3-5.1); Sodium 138 mmol/L (135-145); Total Protein 7.9 g/dL (6.5-8.0); Triglycerides 270 mg/dL (<150)
[2025-05-13 18:59] LABS: Prostate Specific Antigen 3.08 ng/mL (<0.05-4.0)
[2025-05-14 03:54] LABS: HBS Num1 3.37 mIU/mL (0-7.99); HBc Num1 0.07 S/CO (0.00-0.79); HBsAGNum1 0.37 S/CO (0.00-0.99); HIV Num 1 0.06 S/CO (0.00-0.99); Hepatitis B Surface Antigen Negative (Negative); ~HepC Num1 0.06 S/CO (0.00-0.79); ~Hepatitis B Surface Antibody NONREACTIVE (Nonreactive); ~Hepatitis C Antibody Nonreactive (Nonreactive)
[2025-05-14 05:20] LABS: Hemoglobin A1C 137.9706 umol/L; Total Hemoglobin (HGBA1C) 3685.9859 umol/L
== END 2025-05-13 15:49 | disposition home or self-care (01) ==
LOC: HO.HHCL 15:48
PROVIDERS: PCP Nurse Practitioner Primary Care; Visit Provider Nurse Practitioner Primary Care
DX: Z00.00 Encounter for general adult medical examination without abnormal findings (principal); Z12.5 Encounter for screening for malignant neoplasm of prostate; Z11.59 Encounter for screening for other viral diseases; Z11.4 Encounter for screening for human immunodeficiency virus [HIV]; Z13.220 Encounter for screening for lipoid disorders; K62.5 Hemorrhage of anus and rectum; R73.01 Impaired fasting glucose
CPT/HCPCS: 36415; 80053; 80061; 83036; 84153; 85025; 86592; 86704; 86706; 86803; 87340; 87389

== ENCOUNTER 2025-05-26 10:53 | Outpatient (AMB) | payer OTHER, SELFPAY ==
--- NOTE | 2025-05-26 10:57 | MHC.OFFVIS ---
Vital Signs 05/26/25 11:06 Height 5 ft 8 in Weight 189 lb BMI 28.7 BP 158/86 H Blood Pressure Location Rt brachial Position Sitting Pulse 86 Intake Visit Reasons: epidural cyst chest wall/bleeding hemorrhoids Intake Note: Patient referred by Dr. Patterson for evaluation of epidermal inclusion cyst on chest. Present for 2yrs. Patient c/o: denies bleeding, oozing. Production Recorder Required: No Accompanied by: Self / Same As Patient Allergies cholecalciferol (vitamin D3) (From VITAMIN D3) Allergy (Unknown, Verified 05/26/25 11:02) RASH Medication List - Last Reconciled 05/26/25 by Steven Craig MD acetaminophen 500 mg PO Q6H PRN azithromycin For 250 mg dose pack: take 500 mg today (day 1), then 250 mg for 4 days (days 2-5) benzonatate 100 mg PO BID PRN cyclobenzaprine 5 mg PO BEDTIME famotidine 20 mg PO BID ibuprofen 600 mg PO Q8H PRN lorazepam (Ativan) 0.5 mg PO TID PRN naproxen 500 mg PO Q12H PRN HPI HPI epidural cyst chest wall/bleeding hemorrhoids: Details: 64-year-old male referred for a cyst on the right chest wall along with hemorrhoids He says that he had undergone cyst excision on the anterior chest wall about 2 years ago. He says he has what he thinks is a ?lump? on the scar. He says that this does not swell up. He denies any drainage. He said that this really does not bother him but he wanted this checked. He also says that 2 weeks ago, he had pain and swelling in an area of his anus which he said also had a little bit of blood. He says that this improved significantly. He said he no longer has pain but he wanted this checked as well. [facility] Medical History (Updated 05/26/25 @ 11:14 by Steven Craig MD) Thrombosed external hemorrhoid Epidermal inclusion cyst Chronic back pain No known health problems Surgical History History of excision of epidermal inclusion cyst No pertinent past surgical history (~06/29/23) Family History Mother Breast cancer Social History Alcohol intake: never Patient Tobacco Use Status: Never used Tobacco Review of Systems Const Denies chills and Denies fever(s) Card Denies chest pain, Denies dyspnea and Denies dyspnea on exertion Resp Denies cough, Denies dyspnea and Denies dyspnea on exertion GI Denies hematochezia and Denies change in bowel habits Denies hematuria and Denies difficulty urinating Musc Denies back pain and Denies limited range of motion Neuro Denies focal weakness and Denies convulsions Psych Denies depression and Denies mood swings Physical Exam Vital Signs: Last Vital Signs Pulse 86 05/26/25 11:06 BP 158/86 H 05/26/25 11:06 BMI result Body Mass Index 28.7 Const General: comfortable and no acute distress Orientation/consciousness: patient oriented x3 Neck Neck: Yes no lymphadenopathy Chest Other: Scar on the right chest wall from his previous excision site, with no obvious cystic induration redness or fluctuance Resp Auscultation: clear to auscultation bilaterally Cardio Rhythm: regular rhythm GI Other: Rectal exam shows a thrombosed external hemorrhoid about 1 cm on the left side, nontender currently, no bleeding Palpation (GI): Soft to palpation, nontender and no guarding Neuro General: patient oriented x3 Assessment & Plan Assessment & Plan (1) Epidermal inclusion cyst: Code(s): L72.0 - Epidermal cyst Category: Medical Plan: He had an epidermal inclusion cyst excised from the right chest wall 2 years ago. He feels a ?lump? in the area. Examination actually reveals scar formation. I do not feel any obvious cystic induration no any recurrence. I told him that I would hold off on any excision at this time. He can follow this closely and he can come back if he notices any swelling or discharge. (2) Thrombosed external hemorrhoid: Code(s): K64.5 - Perianal venous thrombosis Category: Medical Plan: He has a thrombosed external hemorrhoid on the left side. This has currently non tender and nonpainful. I told him that this should resorb on its own. Hot Sitz baths may hasten resorption. I told him that in the future, if he has persistent problems with the, he can come back to the office to be re-evaluated for surgical excision He understands the plan well. Coding Level of Care Code Est Pt Level 3 (33390) Diagnoses Epidermal inclusion cyst L72.0 Thrombosed external hemorrhoid K64.5
[2025-05-26 11:06] VITALS: BP 158/86; PULSE 86; BMI 28.7
--- OUTSIDE RECORDS SUMMARY | 2025-05-26 11:36 | XMS_ITS | Patient Health Record ---
Author Organization [facility] Address [address] [place], [place] [id number] Care Team Providers Care Parking Lot Signaler Name Role Phone [employer] - DO NOT USE, Benefit Application Prim josé miguel Care Provider Unavailable Yany Enriquez Unavailable Reason For Referral No Information Encounters Encounter Location Date Provider Diagnosis [facility] [address] [place] [phone] 07/10/2024 Yany Enriquez [facility] [address] [place] [address] [phone] 07/23/2024 Yany Enriquez [facility] [address] [place] [address] [id number] 08/08/2024 Yany Enriquez [facility] [address] [place] [address] [phone] 08/01/2024 Yany Enriquez [facility] [address] [place] [address] [id number] 10/01/2024 Yany Enriquez [facility] [address] [place] [address] [phone] 10/24/2024 Yany Enriquez [facility] [address] [place] [address] [id number] 05/01/2025 Yany Enriquez [facility] [address] [place] [phone] 08/16/2024 Yany Enriquez Plan Of Treatment No Information Insurance Providers Payer Name Payer Address Payer Phone Subscriber Number Group Number Insured Name Patient Relationship to Insured Coverage Start Date Coverage End Date [place] [employer]- Part B [employer] [address] [facility] [address] Justen Wong Self - patient is the insured
--- OUTSIDE RECORDS SUMMARY | 2025-05-26 11:36 | XMS_ITS | Encounter Summary ---
Author Organization [employer] Address [address] [facility] [address] [place] [address] Care Team Providers Care Cooker Operator Name Role Phone Isabelle Membreno Primary Care Provider [phone] Mihaela Cool MD Primary Care Pro vider Reason for Visit * Reason Onset Date Comments Med Refill 02/09/2023 Encounter Details Date Type Department Care Team (Late st Contact Info) Description 02/09/2023 Telephone [facility] MEDICINE [address] [place] [address] Isabelle Membreno FNP [address] [place] [address] Med Refill Social History Tobacco Use Types Packs/Day Years Used Date Smoking Tobacco: Never Assessed Sex and Gender Information Value Date Recorded Sex Assigned at Male 08/15/2022 10:33 AM EDT Legal Sex Male 10:33 AM EDT Gender Identity Male 08/15/2022 10:33 AM EDT Sexual Orientation Straight 08/15/2022 10 :33 AM EDT COVID-19 Exposure Response Date Recorded In the last 10 days, have yo u been in contact with someone who was confirmed or suspected to have Coronavirus/COVID-19? No / Unsure 01/16/2023 2:36 PM EDT documented as of this encounter Miscellaneous Notes * Telephone Encounter - Yelena Luke RN - 02/13/2023 4:47 PM EDT Placed call to pt regarding message below. Pt informed of meloxicam not needing refills and that Flexeril being refilled. Pt informed that if pt is only getting relief from meds then pt needs to f/u with PCP. Pt states that if it weren't for the pills he would not be better. Pt still c/o neck pain which has him dependent on muscle relaxer for relief. Pt agrees with f/u with PCP om 02/27/23 to discuss further POC. * Telephone Encounter - KIRILL Washington - 02/10/2023 5:51 AM EDT Please call pt and let him know that order for meloxicam should have refill available, just needs to call pharmacy directly. I sent in another 10 day rx of the cyclobenzaprine, but if he continues to feel as though needs med, should be seen for a follow up appt for further eval. Thank you. * Telephone Encounter - Nhi Hayes LPN - 02/09/2023 1:46 PM EDT Meloxicam was sent to [facility] #[id number] on 01/16/23 Qty: 30 with 1 refill. ? Flexeril short term. Please review. * Telephone Encounter - Sam De Dios - 02/09/2023 1:38 PM EDT Tc from pt requesting med refill on cyclobenzaprine (Flexeril) 5 MG tablet meloxicam (Mobic) 7.5 MG tablet Please sent to [facility]/pharmacy #[id number] - [address] documented in this encounter Plan of Treatment Upcoming Encounters Date Type Department Care Team (Late st Contact Info) Description 06/06/2025 10:15 AM EDT Office Visit [facility] MEDICINE [address] [place] [phone] Mihaela Cool MD [address] [place], [place] [phone] documented as of this encounter Visit Diagnoses Not on filedocumented in this encounter Care Teams Cooker Operator Relationship Specialty Start Date End Date Isabelle Membreno FNP [address] [place] [address] PCP - General Family Medicine 08/09/21 04/10/24 Mihaela Cool MD [address] [place] [address] PCP - General Internal Medicine 04/11/24 documented as of this encounter
== END 2025-05-26 11:15 | disposition home or self-care (01) ==
LOC: HO.HGS 10:53
PROVIDERS: PCP Nurse Practitioner Primary Care; Visit Provider Surgery
DX: L72.0 Epidermal cyst (principal); K64.5 Perianal venous thrombosis
CPT/HCPCS: 99213

== ENCOUNTER → 2025-05-26 10:53 | Outpatient (BNVA) | payer OTHER, SELFPAY | PROVIDERS: PCP Nurse Practitioner Primary Care; Visit Provider Surgery | DX: L72.0 Epidermal cyst (principal); K64.5 Perianal venous thrombosis | CPT/HCPCS: 99212 ==